=== PATIENT | male | born 1945 | race Hispanic/Latino ===

== ENCOUNTER 2019-02-22 14:29 | Outpatient (CLI) | payer OTHER, MEDICARE ==
--- NOTE | 2019-02-22 15:23 | RAD ---
LEFT HIP 2 VIEWS: HISTORY: Chronic left hip pain. FINDINGS: There are arthritic changes of the hip seen. There is some early spur formation along the femoral he ad and neck junction. Osteophytic change of the acetabulum without significant joint space narrowing . No fractures. Vascular calcifications are noted. IMPRESSION: Mild arthritic change of the hip. POS: [facility]
== END 2019-02-22 14:30 | disposition home or self-care (01) ==
LOC: SCSRAD 14:29
PROVIDERS: ATTEND Family Medicine
DX: M16.12 Unilateral primary osteoarthritis, left hip (principal)

== ENCOUNTER 2020-09-19 08:45 | Inpatient (IN) | payer MEDICARE ==
[2020-09-19 09:33] LABS: #Basophils 0.1 thou/uL (0.0-0.2); #Monocytes 0.5 thou/uL (0.11-0.59); %Basophils 0.7 % (0.0-1.0); %Lymphocytes 13.2 % (21.0-51.0); %Monocytes 6.7 % (0.0-10.0); %Neutrophils 79.4 % (42.0-75.0); Hemoglobin 17.5 g/dL (14.0-18.0); Mean Corpuscular HGB CONC 31.2 g/dL (32.0-36.0); Mean Corpuscular Hemoglobin 29.4 pg (27.0-31.0); Mean Platelet Volume 9.9 fL (7.4-10.4); Platelet Count 222 thou/uL (130-400); RBC Distribution Width 11.8 % (11.5-14.5); Red Blood Cell (RBC) Count 5.95 mill/uL (4.70-6.10); White Blood Cell (WBC) Count 7.5 thou/uL (4.8-10.8)
[2020-09-19 09:39] LABS: PTT 25.7 sec (22.9-36.1); Prothrombin Time 13.7 sec (12.0-14.7)
[2020-09-19] MEDS ORDERED: Cefepime 2 GM VIAL ONE (09:41)
[2020-09-19] MEDS ORDERED: Dexamethasone 10 MG/ML VIAL ONE (09:43)
[2020-09-19 09:56] LABS: ALT (SGPT) 80 U/L (8-55); AST (SGOT) 91 U/L (5-34); Albumin 3.9 g/dL (3.4-4.8); Alkaline Phosphatase 107 U/L (40-110); Anion Gap 34 mmol/L (10-20); BUN (Urea Nitrogen) 74 mg/dL (8.4-25.7); Calc. Creatinine Clearance 0 mL/min (70-130); Carbon Dioxide 14 mmol/L (23-31); Chloride 98 mmol/L (98-107); Globulin 4.1 g/dL (2.4-3.5); Potassium 5.3 mmol/L (3.5-5.1); Sodium 141 mmol/L (136-145)
[2020-09-19] MEDS ORDERED: Vancomycin 1.5 GRAM/300 ML BAG 1.5 GM in Premix Bag 1 BAG IVPB SCH (10:00)
[2020-09-19 10:10] LABS: Glucose 806 mg/dL (83-110)
--- NOTE | 2020-09-19 10:37 | RAD ---
EXAM: Chest one view: HISTORY: Dyspnea, altered mental status COMPARISON: 01/26/2014 FINDINGS: Minimal increased linear parenchymal changes in the perihilar regions and lower lung zones with mild right hemidiaphragm elevation. Heart size: Minimally enlarged. No confluent pneumonia. Lungs: Clear of acute process. No significant pleural effusion or pneumothorax. IMPRESSION: Minimal increased linear and interstitial markings in the mid and lower lung zones slightly more prom inent than prior study although this may just be related to less inspiration. Consider short-term follow-up.
[2020-09-19 10:46] LABS: Bilirubin Negative (Negative); Blood, Urine Small (Negative); Glucose, Urine (Dipstick) >=1000 mg/dL (Negative); Ketone, Urine 40 mg/dL (Negative); Leukocyte Negative (Negative); Nitrite Negative (Negative); Protein, Urine (Dipstick) Negative (Neg-Trace); Specific Gravity, Urine 1.015 (1.005-1.030); Urobilinogen 0.2 mg/dL (Less than 2)
[2020-09-19 10:48] LABS: CKMB 1.8 ng/mL (0-6.6)
[2020-09-19 10:57] LABS: Clarity Clear (Clear)
[2020-09-19 10:58] LABS: RBC/HPF 0-3 HPF (0-3); WBC/HPF None Seen HPF (0-3)
[2020-09-19 10:59] LABS: Bacteria/HPF 1+ HPF (None Seen); Squamous Epithelial 0-3 HPF (0-3); Yeast-Budding 1+ HPF (None Seen)
[2020-09-19 11:38] LABS: SARS-CoV-2 NAA Rapid Test DETECTED (NotDetected)
[2020-09-19] MEDS ORDERED: Diltiazem 125 MG/25 ML ONE ×2 (12:39→21:45)
[2020-09-19] MEDS ORDERED: INSULIN REGULAR IN 0.9 % NACL 100 UNIT/100 ML BAG ONE (12:39)
[2020-09-19 13:52] LABS: Lactic Acid 2.3 mmol/L (0.5-2.2)
[2020-09-19 14:01] LABS: Troponin I 0.039 ng/mL (< 0.028)
[2020-09-19] MEDS ORDERED: Diltiazem 125 MG in Sodium Chloride 0.9% 100 ML IVPB SCH (15:31)
[2020-09-19] MEDS ORDERED: HUMULIN R 100 UNITS in Sodium Chloride 0.9% 100 ML IVPB SCH (15:31)
[2020-09-19] MEDS ORDERED: NS 0.9% w/ 20 MEQ KCL 1,000 ML IV PRN ×2 (15:31)
[2020-09-19] MEDS ORDERED: Dextrose 5 %-0.45 % NaCl 1,000 ML IV PRN (15:31)
[2020-09-19] MEDS ORDERED: D5 1/2 NS w/20 mEq KCL 1,000 ML IV PRN (15:31)
[2020-09-19] MEDS ORDERED: Sodium Chloride 0.9% 1,000 ML IV PRN ×4 (15:31)
[2020-09-19] MEDS ORDERED: Electrolyte Replacement Protocol 1 EACH IVPB ONE (15:31)
[2020-09-19] MEDS ORDERED: hydrALAZINE 20 MG/ML VIAL SLOW IVP PRN (15:31)
[2020-09-19] MEDS ORDERED: Electrolyte Replacement Protocol FS PRN (15:45)
[2020-09-19 15:46] LABS: Troponin I 0.038 ng/mL (< 0.028)
[2020-09-19] MEDS ORDERED: Heparin 5,000 UNITS/ML VIAL SC SCH (16:00)
[2020-09-19 16:50] LABS: Anion Gap 27 mmol/L (10-20); BUN (Urea Nitrogen) 69 mg/dL (8.4-25.7); Calc. Creatinine Clearance 0 mL/min (70-130); Calcium 8.7 mg/dL (7.8-10.44); Carbon Dioxide 13 mmol/L (23-31); Chloride 111 mmol/L (98-107); Glucose 521 mg/dL (83-110); Potassium 4.3 mmol/L (3.5-5.1); Sodium 147 mmol/L (136-145)
[2020-09-19] MEDS ORDERED: Albuterol 200 PUFF (6.7GM INHALER) ONE (17:16)
--- NOTE | 2020-09-19 19:39 | HP ---
PRIMARY CARE PHYSICIAN: Dr. Malagon. CHIEF COMPLAINT: Altered mental status and shortness of breath. HISTORY OF PRESENT ILLNESS: Mr. Cohen is a 75-year-old gentleman, who has a history of diabetes mellitus, who was brought in by family due to altered mental status, decrease in his sensorium. His had also recently tested positive for COVID-19. When he was evaluated in the ER, he was found to be confused and hypoxic. He initially was placed on nasal cannula up to 6 L but was still saturating in the mid 80s and then was placed on high-flow. He was also found to be in atrial fibrillation with rapid ventricular response. He was given 20 of diltiazem. His heart rate improved but has since gone back up into the 120s, and he was also found to be in DKA. He also has an elevated lactic acid and neutrophilia and has met criteria for sepsis syndrome with the elevated heart rate and respiratory rate as well. Otherwise, no other history is obtainable. He is a bit obtunded. He is arousable and will try to answer questions but is confused. REVIEW OF SYSTEMS: This is unobtainable due to the patient's mental status. PAST MEDICAL HISTORY: Significant for ureteral stone, BPH, hypertension, osteoarthritis, and diabetes mellitus type 2. PAST SURGICAL HISTORY: He had laser lithotripsy, meatal dilatation, cystoscopy, and retrograde pyelogram. ALLERGIES: NO KNOWN DRUG ALLERGIES. SOCIAL HISTORY: He lives at home with family. It is reported to me that he wants to be a full code. There is no alcohol or drug use. In his records, it says he formerly worked at [employer]. FAMILY HISTORY: Significant for mother had coronary artery disease and in her 80s, hypertension in a daughter. CURRENT MEDICATIONS: Taken from the ER records and include, 1. Amlodipine 10 mg daily. 2. 200 mg every 8 hours. 3. [place] 5/325 one to two tablets q.4 hours as needed. 4. Flomax 0.4 mg daily. 5. Ketoralac 10 mg daily as needed. PHYSICAL EXAMINATION: GENERAL: He is a bit obtunded. He is well developed and well nourished. VITAL SIGNS: Initially blood pressure was 127/85, heart rate 130, respiratory rate of 47, temperature was 97.6, and O2 saturation was 84 on room air. HEENT: His pupils are equal, round, and reactive. Extraocular muscles are intact. His sclerae anicteric. NECK: There is no jugular venous distention. LUNGS: He has bilateral rales, very fine, an occasional wheeze. CARDIOVASCULAR: Heart rate is irregular, it is rapid, unable to appreciate any murmurs, clicks, or rubs. ABDOMEN: Soft, it is nontender, nondistended. Positive for bowel sounds. No rebound. No guarding. EXTREMITIES: There is no calf tenderness. No edema. He has palpable dorsalis pedis pulses bilaterally. No lesions on the feet. NEUROLOGIC: He is moving all extremities. SKIN AND INTEGUMENT: No skin changes. No rash. LAB RESULTS: White blood cell count is 7.5, hemoglobin 17.5, hematocrit is 55.9, and platelet count is 222. INR is 1.0. Sodium 141, potassium 5.3, chloride is 98, CO2 is 14, BUN of 74, creatinine 2.21, glucose was 806. Urinalysis was negative. Toxicology, the beta hydroxybutyrate was elevated at 7.93. On his chest x-ray, he had some elevation of the right hemidiaphragm and increased pulmonary vascular markings. This is by my reading. ASSESSMENT: This is a 75-year-old gentleman, who was brought in from home with acute respiratory distress. His has tested positive for COVID-19, and it is suspected that Mr. Cohen is COVID positive as well. He will be admitted to the [facility], started on IV Decadron. At this time, I am unable to assess when his symptoms began, and he also has an acute kidney injury with GFR less than 30, so at this time, he is not a candidate for remdesivir. If his renal function improves and we can identify the time when his symptoms started, this could be readdressed. 1. Diabetic ketoacidosis, likely due to the COVID pneumonia. He will be placed on the insulin drip protocol. 2. Sepsis. I suspect this is likely due to the DKA, and we will follow up on blood and urine cultures. 3. Atrial fibrillation with rapid ventricular response. He has been placed on a Cardizem drip, and we will go ahead and continue this and also consider full-dose anticoagulation should this persist. 4. Acute kidney injury, likely as a result of sepsis. We will trend his creatinine and consider renal ultrasound if his numbers do not improve as well as a nephrology consult. Job ID: [id number]
[2020-09-19 19:44] LABS: Anion Gap 18 mmol/L (10-20); BUN (Urea Nitrogen) 55 mg/dL (8.4-25.7); Calc. Creatinine Clearance 0 mL/min (70-130); Calcium 8.9 mg/dL (7.8-10.44); Carbon Dioxide 20 mmol/L (23-31); Chloride 115 mmol/L (98-107); Glucose 383 mg/dL (83-110); Potassium 4.1 mmol/L (3.5-5.1); Sodium 149 mmol/L (136-145)
[2020-09-19] MEDS ORDERED: Cefepime 1 GM VIAL ONE (21:20)
[2020-09-19] MEDS ORDERED: Famotidine/PF 20 mg/2ml Vial ONE (21:20)
[2020-09-19] MEDS: Famotidine/PF 20 mg/2ml Vial SLOW IVP SCH (21:57)
[2020-09-19] MEDS: Cefepime 1 GM in Sodium Chloride 0.9% 100 ML IVPB SCH (22:04)
[2020-09-19] MEDS ORDERED: Acetaminophen 650 MG Suppository ONE (23:30)
[2020-09-19] MEDS: Acetaminophen 325 MG TAB PO PRN (23:38)
[2020-09-19] MEDS: Heparin 5,000 UNITS/ML VIAL SC SCH (23:46)
[2020-09-20 00:23] LABS: Anion Gap 17 mmol/L (10-20); BUN (Urea Nitrogen) 45 mg/dL (8.4-25.7); Calc. Creatinine Clearance 60 mL/min (70-130); Calcium 8.5 mg/dL (7.8-10.44); Carbon Dioxide 20 mmol/L (23-31); Chloride 118 mmol/L (98-107); Glucose 319 mg/dL (83-110); Potassium 4.3 mmol/L (3.5-5.1); Sodium 151 mmol/L (136-145)
[2020-09-20 02:34] LABS: Magnesium 2.2 mg/dL (1.6-2.6); Phosphorus 2.2 mg/dL (2.3-4.7)
[2020-09-20 02:44] LABS: Anion Gap 19 mmol/L (10-20); BUN (Urea Nitrogen) 40 mg/dL (8.4-25.7); CRP (Inflammatory) 22.75 mg/dL (= or < 0.5); Calc. Creatinine Clearance 68 mL/min (70-130); Calcium 8.4 mg/dL (7.8-10.44); Carbon Dioxide 17 mmol/L (23-31); Chloride 121 mmol/L (98-107); Glucose 265 mg/dL (83-110); Potassium 4.7 mmol/L (3.5-5.1); Sodium 152 mmol/L (136-145)
--- NOTE | 2020-09-20 03:22 | PDOC.BPN ---
- Brief Progress Note Encounter Date: 09/20/20 I was informed about the critical value of serum osmolality at 339. Review of his chart his sodium increasing from 1 52-153 on the serial BMPs We will change solution to half-normal saline continue BMP monitoring
[2020-09-20] MEDS ORDERED: INSULIN REGULAR IN 0.9 % NACL 100 UNIT/100 ML BAG ONE (07:23)
[2020-09-20] MEDS ORDERED: Insulin Glargine 15 UNITS in Pre-Filled Syringe 1 EACH SC SCH ×2 (09:00→21:00)
--- NOTE | 2020-09-20 09:15 | PDOC.HOSPP ---
- Subjective Encounter Date: 09/20/20 Encounter Time: 09:13 Subjective: Mr. Salamanca was seen today in follow-up of DKA and COVID pneumonia. He is still confused, and pulling at his IV's. He says he is not in pain, nor having trouble breathing. - Objective Vital Signs & Weight: Weight Weight 186 lb 4.65 oz Result Diagrams: 09/19/20 09:13 09/20/20 01:50 Additional Labs: Accuchecks 09/20/20 09/20/20 09/20/20 08:27 06:39 05:26 POC Glucose 199 H 163 H 211 H 09/20/20 09/20/20 09/19/20 01:17 00:17 20:08 POC Glucose 221 H 292 H 345 H 09/19/20 09/19/20 09/19/20 18:49 16:56 15:36 POC Glucose 369 H 402 H 431 H Hospitalist ROS - Medication Medications: Active Medications Generic Name Dose Route Start Last Admin Trade Name Freq PRN Reason Stop Dose Admin Acetaminophen 650 mg 09/19/20 15:31 09/19/20 23:38 Acetaminophen 325 Mg Tab PO 650 mg Q4H PRN Administration Headache/Fever/Mild Pain (1-3) Famotidine 20 mg 09/19/20 21:00 09/19/20 21:57 Famotidine/Pf 20 Mg/2ml Vial SLOW IVP 20 mg HS STEPHENIE Administration Heparin Sodium (Porcine) 5,000 units 09/19/20 21:00 09/19/20 23:46 Heparin 5,000 Units/Ml Vial SC 5,000 units TID STEPHENIE Administration Potassium Chloride/Dextrose/Sod Cl 1,000 mls @ 250 mls/hr 09/19/20 15:31 09/20/20 07:50 D5 1/2 Ns W/20 Meq Kcl IV 1,000 mls .Q4H PRN Administration Step 4 of DKA Protocol Protocol Cefepime HCl 1 gm/ Sodium 100 mls @ 200 mls/hr 09/19/20 21:00 09/19/20 22:04 Chloride IVPB 100 mls Q12HR STEPHENIE Administration Potassium Chloride/Sodium Chloride 1,000 mls @ 250 mls/hr 09/19/20 15:31 21:57 Ns 0.9% W/ 20 Meq Kcl IV 1,000 mls .Q4H PRN Administration SEE STEP 3 OF DKA PROTOCOL Protocol - Exam Eye: PERRL, anicteric sclera ENT: dry oral mucosa Heart: irregular Respiratory: no ronchi, normal chest expansion, rales, wheezes Gastrointestinal: soft, non-tender, non-distended, normal bowel sounds, no palpable masses, no hepatomegaly Extremities: no cyanosis, no edema Hosp A/P (1) DKA, type 2 Code(s): E11.10 - TYPE 2 DIABETES MELLITUS WITH KETOACIDOSIS WITHOUT COMA Status: Acute (2) Pneumonia due to COVID-19 virus Code(s): U07.1 - COVID-19; J12.82 - Status: Acute (3) Metabolic encephalopathy Code(s): G93.41 - METABOLIC ENCEPHALOPATHY Status: Acute (4) Atrial fibrillation Code(s): I48.91 - UNSPECIFIED ATRIAL FIBRILLATION Status: Acute (5) Sepsis Code(s): A41.9 - SEPSIS, UNSPECIFIED ORGANISM Status: Acute - Plan * DKA- his anion gap is now closed. blood glucose levels have improved. I am not sure what his out patient regimen is regarding diabetes control. Will therefore place him on a low dose Lantus, and SSI * Advance his diet * AFIB with RVR- will place him on Cardizem or a a beta-alex p.o. and hopefully can wean the cardizem drip * Sepsis- I suspect due to COVID, but will continue empiric antibiotics until final culture results are available * COVID pneumonia- continue supplemental oxygen and Decadron * SUZANNE- improved * Hypernatremia- agree with hypotonic fluids, and will re-check this afternoon, may need to change his fluids to D5W *
[2020-09-20] MEDS ORDERED: Dextrose 5% in Water 1,000 ML IV PRN (09:17)
[2020-09-20] MEDS ORDERED: Dextrose 50% Abboject 50 ML SYRINGE SLOW IVP PRN (09:17)
[2020-09-20] MEDS ORDERED: Cefepime 1 GM VIAL ONE (09:32)
[2020-09-20] MEDS ORDERED: Heparin 10,000 UNITS/ 10 ML VIAL ONE (09:32)
[2020-09-20] MEDS ORDERED: Vancomycin 1 GM in Premix Bag 1 BAG IVPB SCH (10:00)
[2020-09-20] MEDS: Dexamethasone 6 MG in Sodium Chloride 0.9% 50 ML IVPB SCH (10:09)
[2020-09-20] MEDS: Cefepime 1 GM in Sodium Chloride 0.9% 100 ML IVPB SCH ×2 (10:10→21:37)
[2020-09-20] MEDS: Sodium Chloride 0.45% 1,000 ML IV SCH ×2 (10:11→17:26)
[2020-09-20] MEDS ORDERED: Vancomycin 1 GM/200 ML BAG ONE (10:43)
[2020-09-20] MEDS: Saccharomyces boulardii 250 MG CAP PO SCH (12:05)
[2020-09-20 13:17] LABS: Anion Gap 21 mmol/L (10-20); BUN (Urea Nitrogen) 33 mg/dL (8.4-25.7); Calc. Creatinine Clearance 59 mL/min (70-130); Calcium 8.1 mg/dL (7.8-10.44); Carbon Dioxide 14 mmol/L (23-31); Chloride 115 mmol/L (98-107); Glucose 272 mg/dL (83-110); Potassium 5.3 mmol/L (3.5-5.1); Sodium 145 mmol/L (136-145)
[2020-09-20] MEDS ORDERED: HumaLOG 300 UNITS/3 ML VIAL ONE (13:39)
[2020-09-20] MEDS: HumaLOG 300 UNITS/3 ML VIAL SC PRN ×2 (13:43→18:06)
[2020-09-20] MEDS: Heparin 5,000 UNITS/ML VIAL SC SCH (20:31)
[2020-09-20] MEDS ORDERED: Enoxaparin Sodium 40 MG/0.4 ML SYRINGE SC SCH (21:00)
[2020-09-20] MEDS: Diabetic Tussin 200 MG/10 ML UDCUP PO PRN (21:35)
[2020-09-20] MEDS: Tamsulosin HCl 0.4 MG CAP PO SCH (21:36)
[2020-09-20] MEDS: Famotidine/PF 20 mg/2ml Vial SLOW IVP SCH (21:36)
[2020-09-20] MEDS: Metoprolol Tartrate 25 MG TAB PO SCH (21:36)
[2020-09-20] MEDS: Lactated Ringer's 1,000 ML IV SCH (21:38)
[2020-09-21] MEDS: Diabetic Tussin 200 MG/10 ML UDCUP PO PRN ×4 (01:02→21:06)
[2020-09-21 05:45] LABS: Anion Gap 20 mmol/L (10-20); BUN (Urea Nitrogen) 28 mg/dL (8.4-25.7); Calc. Creatinine Clearance 84 mL/min (70-130); Calcium 8.2 mg/dL (7.8-10.44); Carbon Dioxide 18 mmol/L (23-31); Chloride 109 mmol/L (98-107); Glucose 289 mg/dL (83-110); Potassium 4.3 mmol/L (3.5-5.1); Sodium 143 mmol/L (136-145)
[2020-09-21] MEDS: HumaLOG 300 UNITS/3 ML VIAL SC PRN ×4 (05:50→20:55)
[2020-09-21] MEDS: Lactated Ringer's 1,000 ML IV SCH (08:48)
[2020-09-21] MEDS: Metoprolol Tartrate 25 MG TAB PO SCH ×2 (08:49→20:52)
[2020-09-21] MEDS: Tamsulosin HCl 0.4 MG CAP PO SCH ×2 (08:49→20:52)
[2020-09-21] MEDS ORDERED: Amlodipine 10 MG TAB PO SCH (09:00)
[2020-09-21] MEDS: Dexamethasone 6 MG in Sodium Chloride 0.9% 50 ML IVPB SCH (09:17)
--- NOTE | 2020-09-21 09:59 | PDOC.HOSPP ---
- Subjective Encounter Date: 09/21/20 Encounter Time: 09:58 Subjective: Mr. Cohen was seen today in follow-up of COVID pneumonia, and encephalopathy. He is much better with regards to his mental status. He knows he is in the hospital, he knows the year, and that he is in the hospital " because of COVID". - Objective Vital Signs & Weight: Vital Signs (12 hours) Temp Pulse Resp BP Pulse Ox 09/21/20 08:20 99.4 F 130 H 36 H 166/97 H 94 L 09/21/20 03:45 98.8 F 111 H 22 H 142/88 H 94 L 09/20/20 23:39 98.3 F 86 22 H 140/78 94 L Weight Weight 190 lb I&O: 09/20/20 09/21/20 09/22/20 06:59 06:59 06:59 Intake Total 2209 Output Total 1225 Balance 984 Result Diagrams: 09/19/20 09:13 09/21/20 05:08 Additional Labs: Accuchecks 09/20/20 09/20/20 21:46 17:54 POC Glucose 256 H 294 H Hospitalist ROS - Medication Medications: Active Medications Generic Name Dose Route Start Last Admin Trade Name Freq PRN Reason Stop Dose Admin Acetaminophen 650 mg 09/19/20 15:31 09/19/20 23:38 Acetaminophen 325 Mg Tab PO 650 mg Q4H PRN Administration Headache/Fever/Mild Pain (1-3) Diltiazem HCl 30 mg 09/20/20 11:30 09/21/20 08:49 Diltiazem Hcl 30 Mg Tablet PO 30 mg ACHS STEPHENIE Administration Enoxaparin Sodium 40 mg 09/20/20 21:00 09/20/20 21:36 Enoxaparin Sodium 40 Mg/0.4 Ml Syringe SC 40 mg 2100 STEPHENIE Administration Famotidine 20 mg 09/19/20 21:00 09/20/20 21:36 Famotidine/Pf 20 Mg/2ml Vial SLOW IVP 20 mg HS STEPHENIE Administration Guaifenesin 200 mg 09/20/20 20:30 09/21/20 05:52 Diabetic Tussin 200 Mg/10 Ml Udcup PO 200 mg Q4H PRN Administration Cough Dexamethasone 6 mg/ Sodium 51.5 mls @ 100 mls/hr 09/20/20 09:00 09/21/20 09:17 Chloride IVPB 51.5 mls DAILY STEPHENIE Administration Lactated Ringer's 1,000 mls @ 100 mls/hr 09/20/20 20:30 09/21/20 08:48 Lactated Ringer's IV 1,000 mls .Q10H STEPHENIE Administration Insulin Human Lispro 0 units 09/20/20 09:17 09/21/20 05:50 Humalog 300 Units/3 Ml Vial SC 6 unit .MODERATE SLIDING SC PRN Administration Moderate Correctional Scale Metoprolol Tartrate 25 mg 09/20/20 21:00 09/21/20 08:49 Metoprolol Tartrate 25 Mg Tab PO 25 mg BID STEPHENIE Administration Saccharomyces Boulardii 250 mg 09/20/20 12:00 09/20/20 12:05 Saccharomyces Boulardii 250 Mg Cap PO 250 mg 1200 STEPHENIE Administration Tamsulosin HCl 0.4 mg 09/20/20 21:00 09/21/20 08:49 Tamsulosin Hcl 0.4 Mg Cap PO 0.4 mg BID STEPHENIE Administration - Exam General Appearance: NAD, awake alert Eye: PERRL, anicteric sclera Heart: RRR, no murmur, no gallops, no rubs Respiratory: rales (rales and rhonchi at both bases), rhonchi Gastrointestinal: soft, non-tender, non-distended, normal bowel sounds, no palpable masses Extremities: 1+ LE edema (palpable d.p. pulses bilaterally no lesions) Hosp A/P (1) Pneumonia due to COVID-19 virus Code(s): U07.1 - COVID-19; J12.82 - Status: Acute (2) Diabetes mellitus type 2 in obese Code(s): E11.69 - TYPE 2 DIABETES MELLITUS WITH OTHER SPECIFIED COMPLICATION; E66.9 - OBESITY, UNSPECIFIED Status: Chronic (3) Metabolic encephalopathy Code(s): G93.41 - METABOLIC ENCEPHALOPATHY Status: Resolved (4) Atrial fibrillation Code(s): I48.91 - UNSPECIFIED ATRIAL FIBRILLATION Status: Acute (5) Sepsis Code(s): A41.9 - SEPSIS, UNSPECIFIED ORGANISM Status: Acute (6) DKA, type 2 Code(s): E11.10 - TYPE 2 DIABETES MELLITUS WITH KETOACIDOSIS WITHOUT COMA Status: Acute - Plan * COVID pneumonia with metabolic encephalopathy- improved He is much more oriented, * Continue Decadron IV * AFIB with RVR- heart rate is better, off Cardizem drip. Will continue oral Ca rdizem and Metoprolol * Sepsis- suspected due to COVID, cultures are negative so far, so will discon tinue antibiotics * COVID pneumonia- continue supplemental oxygen and Decadron * SUZANNE- resolved * Hypernatremia- resolved *
--- NOTE | 2020-09-21 10:27 | PDOC.HOSPP ---
- Subjective Encounter Date: 09/21/20 Encounter Time: 10:25 Subjective: Mr. James was seen today in follow-up of COVID pneumonia. He does not have any complaints. He is a buit more confused today as compared to yesterday. - Objective Vital Signs & Weight: Vital Signs (12 hours) Temp Pulse Resp BP Pulse Ox 09/21/20 08:20 99.4 F 130 H 36 H 166/97 H 94 L 09/21/20 03:45 98.8 F 111 H 22 H 142/88 H 94 L 09/20/20 23:39 98.3 F 86 22 H 140/78 94 L Weight Weight 190 lb I&O: 09/20/20 09/21/20 09/22/20 06:59 06:59 06:59 Intake Total 2209 Output Total 1225 Balance 984 Result Diagrams: 09/19/20 09:13 09/21/20 05:08 Additional Labs: Accuchecks 09/20/20 09/20/20 21:46 17:54 POC Glucose 256 H 294 H Hospitalist ROS - Medication Medications: Active Medications Generic Name Dose Route Start Last Admin Trade Name Freq PRN Reason Stop Dose Admin Acetaminophen 650 mg 09/19/20 15:31 09/19/20 23:38 Acetaminophen 325 Mg Tab PO 650 mg Q4H PRN Administration Headache/Fever/Mild Pain (1-3) Diltiazem HCl 30 mg 09/20/20 11:30 09/21/20 08:49 Diltiazem Hcl 30 Mg Tablet PO 30 mg ACHS STEPHENIE Administration Famotidine 20 mg 09/19/20 21:00 09/20/20 21:36 Famotidine/Pf 20 Mg/2ml Vial SLOW IVP 20 mg HS STEPHENIE Administration Guaifenesin 200 mg 09/20/20 20:30 09/21/20 05:52 Diabetic Tussin 200 Mg/10 Ml Udcup PO 200 mg Q4H PRN Administration Cough Dexamethasone 6 mg/ Sodium 51.5 mls @ 100 mls/hr 09/20/20 09:00 09/21/20 09:17 Chloride IVPB 51.5 mls DAILY STEPHENIE Administration Insulin Human Lispro 0 units 09/20/20 09:17 09/21/20 05:50 Humalog 300 Units/3 Ml Vial SC 6 unit .MODERATE SLIDING SC PRN Administration Moderate Correctional Scale Metoprolol Tartrate 25 mg 09/20/20 21:00 09/21/20 08:49 Metoprolol Tartrate 25 Mg Tab PO 25 mg BID STEPHENIE Administration Saccharomyces Boulardii 250 mg 09/20/20 12:00 09/20/20 12:05 Saccharomyces Boulardii 250 Mg Cap PO 250 mg 1200 STEPHENIE Administration Tamsulosin HCl 0.4 mg 09/20/20 21:00 09/21/20 08:49 Tamsulosin Hcl 0.4 Mg Cap PO 0.4 mg BID STEPHENIE Administration - Exam Eye: PERRL, anicteric sclera Heart: RRR, no murmur, no gallops, no rubs, normal peripheral pulses Respiratory: rales (rales and rhonchi at both bases) Gastrointestinal: soft, non-tender, non-distended, normal bowel sounds, no palpable masses Extremities: no cyanosis, no edema (good distal pulses bilaterally) Hosp A/P (1) Pneumonia due to COVID-19 virus Code(s): U07.1 - COVID-19; J12.82 - Status: Acute (2) Diabetes mellitus type 2 in obese Code(s): E11.69 - TYPE 2 DIABETES MELLITUS WITH OTHER SPECIFIED COMPLICATION; E66.9 - OBESITY, UNSPECIFIED Status: Chronic (3) Metabolic encephalopathy Code(s): G93.41 - METABOLIC ENCEPHALOPATHY Status: Resolved (4) Atrial fibrillation Code(s): I48.91 - UNSPECIFIED ATRIAL FIBRILLATION Status: Acute (5) Sepsis Code(s): A41.9 - SEPSIS, UNSPECIFIED ORGANISM Status: Acute (6) DKA, type 2 Code(s): E11.10 - TYPE 2 DIABETES MELLITUS WITH KETOACIDOSIS WITHOUT COMA Status: Acute - Plan * COVID pneumonia with metabolic encephalopathy- improved He is much more oriented, * Continue Decadron IV * AFIB with RVR- heart rate is better, off Cardizem drip. Will continue oral Cardizem and Metoprolol * Sepsis- suspected due to COVID, cultures are negative so far, so will discontinue antibiotics * COVID pneumonia- continue supplemental oxygen and Decadron * SUZANNE- resolved * Hypernatremia- resolved *
[2020-09-21 10:30] LABS: Vancomycin, Trough 2.8 ug/mL
[2020-09-21] MEDS: Saccharomyces boulardii 250 MG CAP PO SCH (12:06)
[2020-09-21] MEDS: Insulin Glargine 20 UNITS in Pre-Filled Syringe 1 EACH SC SCH (12:06)
--- NOTE | 2020-09-21 17:14 | PQF ---
CLINICAL DOCUMENTATION CLARIFICATION FORM: Dear Dr. Case Pickens, Dr. Gina Galvan Date: 09/21/20, , 09/23/2020, 09/24/2020 Please exercise your independent, professional judgment in responding to the clarification form. Clinical indicators are provided on the bottom of this form for your review. Please check appropriate box(es): [X ] Acute Respiratory Failure: [ X ] with Hypoxia [ ] with Hypercapnia [ ] Acute On Chronic Respiratory Failure: [ ] with Hypoxia [ ] with Hypercapnia [ ] Acute Respiratory Failure due to: (etiology) [ ] Hypoxia [ ] Other diagnosis [ ] Unable to determine In addition, please specify: Present on Admission (POA): [ ] Yes [ ] No [ ] Unable to determine For continuity of documentation, please document condition throughout progress notes and discharge summary. Thank You. To be completed by CDI/Coding staff for physician review: CLINICAL INDICATORS - SIGNS / SYMPTOMS / LABS / RESULTS AND LOCATION IN Respirations 47, pulse 135, 84% RA > 95% high flow O2, patient presents for evaluation of changes in mental status and shortness of breath, evaluation for coronavirus exposure, hypoxia, increased work of breathing (ED Report) 1/2 RISK FACTORS / RESULTS AND LOCATION IN MR Sepsis, Covid Pneumonia ( PN/Celio) / TREATMENTS / RESULTS AND LOCATION IN MR Supplemental Oxygen ( 09/20 present) Acute Respiratory Failure: ABG pH < 7.35 or > 7.45; Decreased oxygen saturation (<90% room air or < 95% on oxygen); PCO2 > 50 mm Hg; PO2 < 60 mm Hg; Labored or rapid respirations ARDS: Dx Criteria [[place] ARDS]: Respiratory symptoms within one week of a known clinical insult (e.g. shock, infection, surgery, trauma) Bilateral opacities in CXR/Chest CT not due to CHF or fluid THANK YOU! CDS Signature: Magalys Olsen RN Phone #: [phone] Date:09/21/2020 This is a permanent part of the Medical Record [facility]
[2020-09-21] MEDS: Acetaminophen 325 MG TAB PO PRN ×2 (17:24→20:51)
[2020-09-21] MEDS: Enoxaparin Sodium 80 MG/0.8 ML SYRINGE SC SCH (20:51)
[2020-09-21] MEDS ORDERED: Insulin Glargine 20 UNITS in Pre-Filled Syringe 1 EACH SC SCH (21:00)
[2020-09-21] MEDS: Famotidine/PF 20 mg/2ml Vial SLOW IVP SCH ×2 (21:00→21:11)
[2020-09-22 05:39] LABS: Anion Gap 18 mmol/L (10-20); BUN (Urea Nitrogen) 28 mg/dL (8.4-25.7); CRP (Inflammatory) 12.89 mg/dL (= or < 0.5); Calc. Creatinine Clearance 85 mL/min (70-130); Calcium 8.4 mg/dL (7.8-10.44); Carbon Dioxide 20 mmol/L (23-31); Chloride 109 mmol/L (98-107); Glucose 258 mg/dL (83-110); Potassium 4.7 mmol/L (3.5-5.1); Sodium 142 mmol/L (136-145)
[2020-09-22] MEDS: HumaLOG 300 UNITS/3 ML VIAL SC PRN ×5 (06:08→21:16)
[2020-09-22] MEDS: Diabetic Tussin 200 MG/10 ML UDCUP PO PRN ×4 (06:10→21:16)
[2020-09-22] MEDS: Insulin Glargine 20 UNITS in Pre-Filled Syringe 1 EACH SC SCH (07:46)
[2020-09-22] MEDS: Ascorbic Acid 500 mg Chewable Tablet PO SCH (07:47)
[2020-09-22] MEDS: Enoxaparin Sodium 80 MG/0.8 ML SYRINGE SC SCH ×2 (07:47→21:17)
[2020-09-22] MEDS: Cholecalciferol (Vitamin D3) 400 UNITS TAB PO SCH (07:48)
[2020-09-22] MEDS: Dexamethasone 6 MG in Sodium Chloride 0.9% 50 ML IVPB SCH (07:48)
[2020-09-22] MEDS: Tamsulosin HCl 0.4 MG CAP PO SCH ×2 (07:49→21:16)
--- NOTE | 2020-09-22 09:05 | PDOC.HOSPP ---
- Subjective Encounter Date: 09/22/20 Encounter Time: 09:02 Subjective: Mr. Cohen was seen today in follow-up of COVID pneumonia, and encephalopathy. He is much clearer today than yesterday. He was able to tell me that his symptoms started the before last. He says he tried to get in to see his Primary Care Provider but was not able to. He says in the few days before he was admitted he was was " out of it". He says he was not eating or drinking anything, and just laying around. - Objective Vital Signs & Weight: Vital Signs (12 hours) Temp Pulse Resp BP Pulse Ox 09/22/20 04:09 98.8 F 108 H 22 H 155/87 H 98 09/21/20 23:35 98.4 F 106 H 22 H 153/88 H 96 Weight Weight 190 lb I&O: 09/21/20 09/22/20 09/23/20 06:59 06:59 06:59 Intake Total 2209 1500 Output Total 1225 700 Balance 984 800 Result Diagrams: 09/19/20 09:13 09/22/20 04:48 Additional Labs: Accuchecks 09/22/20 09/21/20 09/21/20 05:31 19:59 16:54 POC Glucose 237 H 297 H 347 H 09/21/20 09/20/20 09/20/20 12:21 15:18 12:51 POC Glucose 325 H 254 H 252 H 09/20/20 09/20/20 09/20/20 10:57 09:58 04:29 POC Glucose 122 H 227 H 243 H 09/20/20 09/20/20 09/19/20 03:15 02:23 22:56 POC Glucose 275 H 266 H 307 H 09/19/20 09/19/20 13:57 12:59 POC Glucose Greater than 530 H* Greater than 530 H* Hospitalist ROS - Medication Medications: Active Medications Generic Name Dose Route Start Last Admin Trade Name Freq PRN Reason Stop Dose Admin Acetaminophen 650 mg 09/19/20 15:31 09/21/20 20:51 Acetaminophen 325 Mg Tab PO 650 mg Q4H PRN Administration Headache/Fever/Mild Pain (1-3) Ascorbic Acid 1,000 mg 09/22/20 09:00 09/22/20 07:47 Ascorbic Acid 500 Mg Chewable Tablet PO 1,000 mg DAILY STEPHENIE Administration Cholecalciferol 400 units 09/22/20 09:00 09/22/20 07:48 Cholecalciferol (Vitamin D3) 400 Units Tab PO 400 units DAILY STEPHENIE Administration Diltiazem HCl 30 mg 09/20/20 11:30 09/22/20 07:47 Diltiazem Hcl 30 Mg Tablet PO 30 mg ACHS STEPHENIE Administration Enoxaparin Sodium 80 mg 09/21/20 21:00 09/22/20 07:47 Enoxaparin Sodium 80 Mg/0.8 Ml Syringe SC 80 mg 0900,2099 STEPHENIE Administration Famotidine 20 mg 09/21/20 21:00 09/21/20 21:11 Famotidine/Pf 20 Mg/2ml Vial SLOW IVP 20 mg HS STEPHENIE Administration Guaifenesin 200 mg 09/20/20 20:30 09/22/20 06:10 Diabetic Tussin 200 Mg/10 Ml Udcup PO 200 mg Q4H PRN Administration Cough Dexamethasone 6 mg/ Sodium 51.5 mls @ 100 mls/hr 09/20/20 09:00 09/22/20 07:48 Chloride IVPB 51.5 mls DAILY STEPHENIE Administration Insulin Human Lispro 0 units 09/20/20 09:17 09/22/20 06:08 Humalog 300 Units/3 Ml Vial SC 4 unit .MODERATE SLIDING SC PRN Administration Moderate Correctional Scale Insulin Human Lispro 0 units 09/20/20 09:17 09/21/20 20:55 Humalog 300 Units/3 Ml Vial SC 3 unit .BEDTIME SLIDING SC PRN Administration Bedtime Correctional Scale Metoprolol Tartrate 25 mg 09/20/20 21:00 09/21/20 20:52 Metoprolol Tartrate 25 Mg Tab PO 25 mg BID STEPHENIE Administration Saccharomyces Boulardii 250 mg 09/20/20 12:00 09/21/20 12:06 Saccharomyces Boulardii 250 Mg Cap PO 250 mg 1200 STEPHENIE Administration Sodium Chloride 10 ml 09/21/20 21:00 09/22/20 07:48 Flush - Normal Saline 10 Ml Syringe IVF 10 ml Q12HR STEPHENIE Administration Tamsulosin HCl 0.4 mg 09/20/20 21:00 09/22/20 07:49 Tamsulosin Hcl 0.4 Mg Cap PO 0.4 mg BID STEPHENIE Administration - Exam Eye: PERRL, anicteric sclera Heart: RRR, no murmur, no gallops, no rubs, normal peripheral pulses Respiratory: no wheezes, no ronchi, rales (at both bases) Gastrointestinal: soft, non-tender, non-distended, normal bowel sounds, no palpable masses, no hepatomegaly Extremities: no cyanosis (+ palpable d.p. pulses, no lesions), 1+ LE edema Hosp A/P (1) Pneumonia due to COVID-19 virus Code(s): U07.1 - COVID-19; J12.82 - Status: Acute (2) Diabetes mellitus type 2 in obese Code(s): E11.69 - TYPE 2 DIABETES MELLITUS WITH OTHER SPECIFIED COMPLICATION; E66.9 - OBESITY, UNSPECIFIED Status: Chronic (3) Metabolic encephalopathy Code(s): G93.41 - METABOLIC ENCEPHALOPATHY Status: Resolved (4) Atrial fibrillation Code(s): I48.91 - UNSPECIFIED ATRIAL FIBRILLATION Status: Acute (5) Sepsis Code(s): A41.9 - SEPSIS, UNSPECIFIED ORGANISM Status: Acute (6) DKA, type 2 Code(s): E11.10 - TYPE 2 DIABETES MELLITUS WITH KETOACIDOSIS WITHOUT COMA Status: Acute - Plan * COVID pneumonia with metabolic encephalopathy- resolving * Continue Decadron IV * AFIB with RVR- heart rate is better- continue Lovenox * DM- He was able to tell me that he was taking Metformin at home at 500mg twice a day- will re-start this in addition to the Lantus * Sepsis- suspected due to COVID, cultures are negative so far, so will discontinue antibiotics * COVID pneumonia- continue supplemental oxygen and Decadron * SUZANNE- resolved * Hypernatremia- resolved * HTN- blood pressure is trending down
[2020-09-22] MEDS: Acetaminophen 325 MG TAB PO PRN ×2 (10:27→21:16)
[2020-09-22] MEDS: Metoprolol Tartrate 25 MG TAB PO SCH ×3 (10:27→21:16)
[2020-09-22] MEDS: Zinc Sulfate 220 MG CAP PO SCH ×2 (10:28→12:01)
[2020-09-22] MEDS: Insulin Glargine 25 UNITS in Pre-Filled Syringe 1 EACH SC SCH ×3 (10:29→21:18)
[2020-09-22] MEDS ORDERED: Insulin Glargine 5 UNITS in Pre-Filled Syringe 1 EACH SC SCH (10:45)
[2020-09-22] MEDS: Saccharomyces boulardii 250 MG CAP PO SCH (12:01)
[2020-09-22] MEDS: Albuterol 200 PUFF (6.7GM INHALER) INH PRN (15:16)
[2020-09-22] MEDS: metFORMIN 500 MG TAB PO SCH (17:39)
[2020-09-22] MEDS: Famotidine/PF 20 mg/2ml Vial SLOW IVP SCH (21:18)
[2020-09-23] MEDS: Diabetic Tussin 200 MG/10 ML UDCUP PO PRN ×3 (04:22→21:02)
[2020-09-23 05:16] LABS: Hemoglobin 14.9 g/dL (14.0-18.0); Platelet Count 231 thou/uL (130-400)
[2020-09-23 05:41] LABS: Anion Gap 18 mmol/L (10-20); BUN (Urea Nitrogen) 32 mg/dL (8.4-25.7); CRP (Inflammatory) 7.95 mg/dL (= or < 0.5); Calc. Creatinine Clearance 82 mL/min (70-130); Calcium 8.5 mg/dL (7.8-10.44); Carbon Dioxide 23 mmol/L (23-31); Chloride 109 mmol/L (98-107); Glucose 252 mg/dL (83-110); Potassium 3.7 mmol/L (3.5-5.1); Sodium 146 mmol/L (136-145)
[2020-09-23] MEDS: HumaLOG 300 UNITS/3 ML VIAL SC PRN ×4 (06:14→21:22)
[2020-09-23] MEDS: Ascorbic Acid 500 mg Chewable Tablet PO SCH (09:45)
[2020-09-23] MEDS: Tamsulosin HCl 0.4 MG CAP PO SCH ×2 (09:45→21:00)
[2020-09-23] MEDS: metFORMIN 500 MG TAB PO SCH ×2 (09:45→16:16)
[2020-09-23] MEDS: Cholecalciferol (Vitamin D3) 400 UNITS TAB PO SCH (09:45)
[2020-09-23] MEDS: Metoprolol Tartrate 25 MG TAB PO SCH ×2 (09:45→21:00)
[2020-09-23] MEDS: Dexamethasone 6 MG in Sodium Chloride 0.9% 50 ML IVPB SCH (09:46)
[2020-09-23] MEDS: Enoxaparin Sodium 80 MG/0.8 ML SYRINGE SC SCH ×2 (09:46→21:00)
[2020-09-23] MEDS: Albuterol 200 PUFF (6.7GM INHALER) INH PRN ×2 (09:48→17:14)
[2020-09-23] MEDS: Insulin Glargine 25 UNITS in Pre-Filled Syringe 1 EACH SC SCH ×2 (09:48→21:00)
[2020-09-23] MEDS: Zinc Sulfate 220 MG CAP PO SCH (11:27)
[2020-09-23] MEDS: Saccharomyces boulardii 250 MG CAP PO SCH (11:30)
--- NOTE | 2020-09-23 11:35 | PDOC.HOSPP ---
- Subjective Encounter Date: 09/23/20 Subjective: The patient does not appear to be in any respiratory distress today. - Objective Vital Signs & Weight: Vital Signs (12 hours) Temp Pulse Resp BP Pulse Ox 09/23/20 10:00 98.6 F 118 H 32 H 144/80 H 90 L 09/23/20 04:00 98.0 F 110 H 20 142/92 H 98 09/23/20 00:00 97.9 F 85 21 H 146/79 H 97 Weight Weight 190 lb I&O: 09/22/20 09/23/20 09/24/20 06:59 06:59 06:59 Intake Total 1500 1200 Output Total 700 1300 Balance 800 -100 Result Diagrams: 09/23/20 05:08 09/23/20 05:08 Additional Labs: Accuchecks 09/23/20 09/22/20 09/22/20 10:48 20:42 17:07 POC Glucose 240 H 347 H 323 H Hospitalist ROS - Medication Medications: Active Medications Generic Name Dose Route Start Last Admin Trade Name Freq PRN Reason Stop Dose Admin Acetaminophen 650 mg 09/19/20 15:31 09/22/20 21:16 Acetaminophen 325 Mg Tab PO 650 mg Q4H PRN Administration Headache/Fever/Mild Pain (1-3) Albuterol Sulfate 2 puff 09/21/20 00:35 09/22/20 15:16 Albuterol 200 Puff (6.7gm Inhaler) INH 2 puff Q6H PRN Administration SOB &/or Wheezing Ascorbic Acid 1,000 mg 09/22/20 09:00 09/23/20 09:45 Ascorbic Acid 500 Mg Chewable Tablet PO 1,000 mg DAILY STEPHENIE Administration Cholecalciferol 400 units 09/22/20 09:00 09/23/20 09:45 Cholecalciferol (Vitamin D3) 400 Units Tab PO 400 units DAILY STEPHEINE Administration Diltiazem HCl 30 mg 09/20/20 11:30 09/23/20 11:30 Diltiazem Hcl 30 Mg Tablet PO 30 mg ACHS STEPHENIE Administration Enoxaparin Sodium 80 mg 09/21/20 21:00 09/23/20 09:46 Enoxaparin Sodium 80 Mg/0.8 Ml Syringe SC 80 mg 0900,2100 STEPHENIE Administration Famotidine 20 mg 09/21/20 21:00 09/22/20 21:18 Famotidine/Pf 20 Mg/2ml Vial SLOW IVP 20 mg HS STEPHENIE Administration Guaifenesin 200 mg 09/20/20 20:30 09/23/20 10:03 Diabetic Tussin 200 Mg/10 Ml Udcup PO 200 mg Q4H PRN Administration Cough Dexamethasone 6 mg/ Sodium 51.5 mls @ 100 mls/hr 09/20/20 09:00 09/23/20 09:46 Chloride IVPB 51.5 mls DAILY STEPHENIE Administration Insulin Glargine 25 units/ 0.25 mls @ 0 mls/hr 09/22/20 21:00 09/22/20 21:16 Miscellaneous Medication SC 0.25 mls HS STEPHENIE Administration Insulin Glargine 25 units/ 0.25 mls @ 0 mls/hr 09/22/20 09:00 09/23/20 09:48 Miscellaneous Medication SC 0.25 mls QAM STEPHENIE Administration Insulin Human Lispro 0 units 09/20/20 09:17 09/23/20 11:31 Humalog 300 Units/3 Ml Vial SC 4 unit .MODERATE SLIDING SC PRN Administration Moderate Correctional Scale Insulin Human Lispro 0 units 09/20/20 09:17 09/22/20 21:16 Humalog 300 Units/3 Ml Vial SC 4 unit .BEDTIME SLIDING SC PRN Administration Bedtime Correctional Scale Metformin HCl 500 mg 09/22/20 17:00 09/23/20 09:45 Metformin 500 Mg Tab PO 500 mg BID-WM STEPHENIE Administration Metoprolol Tartrate 25 mg 09/22/20 09:00 09/23/20 09:45 Metoprolol Tartrate 25 Mg Tab PO 25 mg BID STEPHENIE Administration Saccharomyces Boulardii 250 mg 09/20/20 12:00 09/23/20 11:30 Saccharomyces Boulardii 250 Mg Cap PO 250 mg 1200 STEPHENIE Administration Sodium Chloride 10 ml 09/21/20 21:00 09/23/20 11:27 Flush - Normal Saline 10 Ml Syringe IVF 10 ml Q12HR STEPHENIE Administration Tamsulosin HCl 0.4 mg 09/20/20 21:00 09/23/20 09:45 Tamsulosin Hcl 0.4 Mg Cap PO 0.4 mg BID STEPHENIE Administration Zinc Sulfate 220 mg 09/22/20 09:00 09/23/20 11:27 Zinc Sulfate 220 Mg Cap PO Not Given DAILY STEPHENIE - Exam General Appearance: awake alert ENT: normocephalic atraumatic Neck: supple, no JVD Heart: RRR Respiratory: normal chest expansion, no tachypnea, rhonchi Gastrointestinal: soft Extremities: no cyanosis, no clubbing Hosp A/P (1) Acute respiratory failure with hypoxia Code(s): J96.01 - ACUTE RESPIRATORY FAILURE WITH HYPOXIA Status: Acute (2) Atrial fibrillation Code(s): I48.91 - UNSPECIFIED ATRIAL FIBRILLATION Status: Acute (3) Pneumonia due to COVID-19 virus Code(s): U07.1 - COVID-19; J12.82 - PNEUMONIA DUE TO CORONAVIRUS DISEASE 2018 Status: Acute (4) Diabetes mellitus type 2 in obese Code(s): E11.69 - TYPE 2 DIABETES MELLITUS WITH OTHER SPECIFIED COMPLICATION; E66.9 - OBESITY, UNSPECIFIED Status: Chronic (5) Metabolic encephalopathy Code(s): G93.41 - METABOLIC ENCEPHALOPATHY Status: Resolved - Plan Continue supplemental oxygen to maintain O2 saturations greater than 92%. Continue dexamethasone and enoxaparin. Lantus dose was increased last night. Continue sliding scale and monitor blood sugars.
[2020-09-23] MEDS: Famotidine/PF 20 mg/2ml Vial SLOW IVP SCH (21:00)
[2020-09-24 05:36] LABS: Anion Gap 15 mmol/L (10-20); BUN (Urea Nitrogen) 26 mg/dL (8.4-25.7); CRP (Inflammatory) 4.43 mg/dL (= or < 0.5); Calc. Creatinine Clearance 92 mL/min (70-130); Calcium 8.4 mg/dL (7.8-10.44); Carbon Dioxide 23 mmol/L (23-31); Chloride 108 mmol/L (98-107); Glucose 233 mg/dL (83-110); Potassium 3.9 mmol/L (3.5-5.1); Sodium 142 mmol/L (136-145)
[2020-09-24] MEDS: Enoxaparin Sodium 80 MG/0.8 ML SYRINGE SC SCH ×2 (07:47→19:55)
[2020-09-24] MEDS: Cholecalciferol (Vitamin D3) 400 UNITS TAB PO SCH (07:50)
[2020-09-24] MEDS: Tamsulosin HCl 0.4 MG CAP PO SCH ×2 (07:50→19:55)
[2020-09-24] MEDS: Metoprolol Tartrate 25 MG TAB PO SCH ×2 (07:50→19:55)
[2020-09-24] MEDS: Ascorbic Acid 500 mg Chewable Tablet PO SCH (07:50)
[2020-09-24] MEDS: Zinc Sulfate 220 MG CAP PO SCH (07:51)
[2020-09-24] MEDS: Dexamethasone 6 MG in Sodium Chloride 0.9% 50 ML IVPB SCH (07:58)
--- NOTE | 2020-09-24 08:48 | PDOC.HOSPP ---
- Subjective Encounter Date: 09/24/20 Encounter Time: 08:46 Subjective: Mr. Cohen was seen today in follow-up of COVID pneumonia and respiratory failure. His oxygen requirements increased last night. He was on a NRB . He has been transitioned to high flow and says he feels comfortable. He is still oriented X 4 so far. - Objective Vital Signs & Weight: Vital Signs (12 hours) Temp Pulse Resp BP BP Pulse Ox 09/24/20 07:50 97.9 F 103 H 22 H 137/80 95 09/24/20 04:00 98.7 F 106 H 21 H 149/90 H 97 09/23/20 23:45 96.5 F L 95 22 H 126/79 93 L 09/23/20 21:00 97.8 F 120 H 24 H 106/71 87 L Weight Weight 190 lb I&O: 09/23/20 09/24/20 09/25/20 06:59 06:59 06:59 Intake Total 1200 1037 Output Total 1300 1200 Balance -100 -163 Result Diagrams: 09/23/20 05:08 09/24/20 04:32 Additional Labs: Accuchecks 09/23/20 09/23/20 09/23/20 21:18 16:30 10:48 POC Glucose 231 H 202 H 240 H Hospitalist ROS - Medication Medications: Active Medications Generic Name Dose Route Start Last Admin Trade Name Freq PRN Reason Stop Dose Admin Acetaminophen 650 mg 09/19/20 15:31 09/22/20 21:16 Acetaminophen 325 Mg Tab PO 650 mg Q4H PRN Administration Headache/Fever/Mild Pain (1-3) Albuterol Sulfate 2 puff 09/21/20 00:35 09/23/20 17:14 Albuterol 200 Puff (6.7gm Inhaler) INH 2 puff Q6H PRN Administration SOB &/or Wheezing Ascorbic Acid 1,000 mg 09/22/20 09:00 09/24/20 07:50 Ascorbic Acid 500 Mg Chewable Tablet PO 1,000 mg DAILY STEPHENIE Administration Cholecalciferol 400 units 09/22/20 09:00 09/24/20 07:50 Cholecalciferol (Vitamin D3) 400 Units Tab PO 400 units DAILY STEPHENIE Administration Diltiazem HCl 30 mg 09/20/20 11:30 09/24/20 07:49 Diltiazem Hcl 30 Mg Tablet PO 30 mg ACHS STEPHENIE Administration Enoxaparin Sodium 80 mg 09/21/20 21:00 09/24/20 07:47 Enoxaparin Sodium 80 Mg/0.8 Ml Syringe SC 80 mg 0900,2100 STEPHENIE Administration Famotidine 20 mg 09/21/20 21:00 09/23/20 21:00 Famotidine/Pf 20 Mg/2ml Vial SLOW IVP 20 mg HS STEPHENIE Administration Guaifenesin 200 mg 09/20/20 20:30 09/23/20 21:02 Diabetic Tussin 200 Mg/10 Ml Udcup PO 200 mg Q4H PRN Administration Cough Dexamethasone 6 mg/ Sodium 51.5 mls @ 100 mls/hr 09/20/20 09:00 09/24/20 07:58 Chloride IVPB 51.5 mls DAILY STEPHENIE Administration Insulin Glargine 25 units/ 0.25 mls @ 0 mls/hr 09/22/20 21:00 09/23/20 21:00 Miscellaneous Medication SC 0.25 mls HS STEPHENIE Administration Insulin Glargine 25 units/ 0.25 mls @ 0 mls/hr 09/22/20 09:00 09/23/20 09:48 Miscellaneous Medication SC 0.25 mls QAM STEPHENIE Administration Insulin Human Lispro 0 units 09/20/20 09:17 09/23/20 17:07 Humalog 300 Units/3 Ml Vial SC 4 unit .MODERATE SLIDING SC PRN Administration Moderate Correctional Scale Insulin Human Lispro 0 units 09/20/20 09:17 09/23/20 21:22 Humalog 300 Units/3 Ml Vial SC 2 unit .BEDTIME SLIDING SC PRN Administration Bedtime Correctional Scale Metoprolol Tartrate 25 mg 09/22/20 09:00 09/24/20 07:50 Metoprolol Tartrate 25 Mg Tab PO 25 mg BID STEPHENIE Administration Saccharomyces Boulardii 250 mg 09/20/20 12:00 09/23/20 11:30 Saccharomyces Boulardii 250 Mg Cap PO 250 mg 1200 STEPHENIE Administration Sodium Chloride 10 ml 09/21/20 21:00 09/24/20 07:49 Flush - Normal Saline 10 Ml Syringe IVF 10 ml Q12HR STEPHENIE Administration Tamsulosin HCl 0.4 mg 09/20/20 21:00 09/24/20 07:50 Tamsulosin Hcl 0.4 Mg Cap PO 0.4 mg BID STEPHENIE Administration Zinc Sulfate 220 mg 09/22/20 09:00 09/24/20 07:51 Zinc Sulfate 220 Mg Cap PO 220 mg DAILY STEPHENIE Administration - Exam General Appearance: NAD Eye: PERRL, anicteric sclera Heart: RRR, no murmur, no gallops, no rubs, normal peripheral pulses Respiratory: rales (at both bases and throughout) Gastrointestinal: soft, non-tender, non-distended, normal bowel sounds, no palpable masses, no hepatomegaly Extremities: no cyanosis, 1+ LE edema (+ palpable d.p. pulses bilaterally, no lesions) Hosp A/P (1) Pneumonia due to COVID-19 virus Code(s): U07.1 - COVID-19; J12.82 - PNEUMONIA DUE TO CORONAVIRUS DISEASE 2018 Status: Acute (2) Diabetes mellitus type 2 in obese Code(s): E11.69 - TYPE 2 DIABETES MELLITUS WITH OTHER SPECIFIED COMPLICATION; E66.9 - OBESITY, UNSPECIFIED Status: Chronic (3) Metabolic encephalopathy Code(s): G93.41 - METABOLIC ENCEPHALOPATHY Status: Resolved (4) Atrial fibrillation Code(s): I48.91 - UNSPECIFIED ATRIAL FIBRILLATION Status: Acute (5) Sepsis Code(s): A41.9 - SEPSIS, UNSPECIFIED ORGANISM Status: Acute (6) DKA, type 2 Code(s): E11.10 - TYPE 2 DIABETES MELLITUS WITH KETOACIDOSIS WITHOUT COMA Status: Acute - Plan * COVID pneumonia - his oxygen requirements increased overnight- however, he is now comfortable on high flow. Will repeat a Chest X-ray at this time * Continue Decadron IV * AFIB with RVR- heart rate is better- continue Lovenox * DM- blood glucose is still elevated- will increase his dose of Metformin * SUZANNE- resolved * Hypernatremia- resolved * HTN- blood pressure is trending down
[2020-09-24] MEDS: Insulin Glargine 25 UNITS in Pre-Filled Syringe 1 EACH SC SCH (09:48)
[2020-09-24] MEDS: metFORMIN 500 MG TAB PO SCH ×2 (09:49→17:01)
--- NOTE | 2020-09-24 09:49 | RAD ---
EXAM: Portable chest PROVIDED CLINICAL HISTORY: Covid pneumonia COMPARISON: None FINDINGS: Cardiac and mediastinal silhouette is within normal limits. Minimal patchy interstitial opacities are redemonstrated, similar to prior. No confluent/lobar consolidation, pleural fluid or pneumothorax apparent. IMPRESSION: Stable radiographic appearance of the chest.
[2020-09-24 10:30] LABS: Actual Bicarbonate (HCO3a) 23.9 mEq/L (22-28); CO2 Tension 30.5 mmHg (35.0-45.0); Carboxyhemoglobin (COHb) 0.3 gm% (0.0-3.0); Hemoglobin (Hb) 16.8 g/dL (14.0-18.0); Potassium - ABG Lab 3.81 mmol/L (3.70-5.30); pH, Arterial 7.51 (7.35-7.45)
[2020-09-24 10:33] LABS: ALV-art Gradient 233.055 mmHg (0-20); O2 Tension (PaO2), arterial 56.8 mmHg (> 70.0); Puncture Site RRA
--- NOTE | 2020-09-24 10:42 | CT ---
CT HEAD WITHOUT IV CONTRAST COMPARISON: None HISTORY: Level 1 stroke alert. Code green. Patient left-sided weakness, slurred speech and last seen normal 4 5 minutes ago. TECHNIQUE: Axial CT imaging at 5 mm intervals from vertex through skull base without contrast FINDINGS: Small low-density focus seen in the right caudate nucleus related to remote lacunar infarction. There is decreased attenuation in the periventricular white matter which is nonspecific but likely reflective of chronic small vessel ischemic changes. There is mild cerebral volume loss. The ventricular system is normal in size, shape, and position for the degree of sulcal atrophy. There is no evidence of an acute infarction, hemorrhage, mass effect, or midline shift. Vascular calcifications are seen in the carotid siphons and in the distal vertebral arteries. Visualized paranasal sinuses are clear. Osseous structures appear intact. Mild scalp soft tissue swelling is seen in the posterior left parie regi region near the vertex. IMPRESSION: 1. No acute intracranial abnormality demonstrated. 2. Chronic small vessel ischemic changes and cerebral volume loss. 3. Small scalp hematoma right parietal region. 4. Above findings discussed with Dr. Gutierrez in the emergency room on 09/24/2020 at 1039 hours.
--- NOTE | 2020-09-24 10:54 | PDOC.BPN ---
- Brief Progress Note Encounter Date: 09/24/20 Encounter Time: 11:19 Mr. Cohen was seen due to change in mental status. He is more lethargic and difficult to arouse. He is moving all extremities Lungs- rales in the bases Blood glucose was in the low 100's Will call a stroke code, and get a stat CT brain Case discussed with the ER physician media consultant.
--- NOTE | 2020-09-24 11:12 | CT ---
CT ANGIOGRAM NECK WITH CONTRAST CT ANGIOGRAM BRAIN WITH CONTRAST: DATE: 09/24/2020 10:40 AM HISTORY: 75-year-old male level 1 stroke. Altered mental status and left-sided weakness with dysarthria. Dr. Weber gave verbal report for this study to Dr. Gutierrez at 11:06 AM 09/24/2020 TECHNIQUE: After IV contrast injection, arterial bolus chasing technique scan performed from 4 cm inferior to ca jake to vertex of head. Coronal and sagittal 3-D MIP reconstructions. FINDINGS: There are are numerous small patchy focal groundglass infiltrates in the bilateral upper lobes, and v isualized portions of superior segments of bilateral lower lobes, mostly peripheral, but some central. Aortic arch: Ectasia. Atherosclerotic calcification. No dissection. Brachiocephalic: No high-grade stenosis. Right subclavian: No stenosis. Left subclavian: Calcified plaque at origin. Tortuous. No stenosis. Left vertebral: No high-grade acquired stenosis identified. Diffusely small caliber. Right vertebral: Dominant. No stenosis. Atherosclerosis at intracranial segment without high-grade st enosis. Right common carotid: No stenosis. Left common carotid: No stenosis. Right internal carotid: Mild plaque at origin. No high-grade stenosis in cervical portion. Left internal carotid: Moderate focal calcified atheromatous plaque at proximal vessel, with estimate d approximately 50-60% stenosis at origin. Bilateral carotid siphons: Bilateral calcified atherosclerotic plaque. At right supraclinoid internal carotid, the plaque is heavily calcified, making it difficult to estimate the degree of stenosis. Moderate to severe stenosis. Bilateral MCA: No M1 segment occlusion or thrombosis. Bilateral ACAs: A1 and A2 segments patent. Basilar: Atherosclerotic irregularity. No high-grade stenosis. Bilateral tug master: P1 and P2 segments patent Bilateral superior cerebellar: Proximal portions patent IMPRESSION: 1) evidence for COVID-19 pneumonia. 2) chronic high-grade stenosis due to heavily calcified plaque at right supraclinoid internal carotid . 3) moderate stenosis at origin of left internal carotid.
[2020-09-24 12:11] LABS: #Eosinphils 0.1 thou/uL (0.0-0.7); #Lymphocytes 1.1 thou/uL (1.20-3.40); #Monocytes 0.9 thou/uL (0.11-0.59); #Neutrophils 7.8 thou/uL (1.40-6.50); %Eosinophils 0.7 % (0.0-10.0); %Lymphocytes 11.3 % (21.0-51.0); %Monocytes 8.6 % (0.0-10.0); %Neutrophils 79.3 % (42.0-75.0); Hemoglobin 15.5 g/dL (14.0-18.0); Mean Corpuscular HGB CONC 33.8 g/dL (32.0-36.0); Mean Corpuscular Hemoglobin 31.1 pg (27.0-31.0); Mean Corpuscular Volume 91.8 fL (78.0-98.0); Mean Platelet Volume 9.3 fL (7.4-10.4); Platelet Count 271 thou/uL (130-400); RBC Distribution Width 11.4 % (11.5-14.5); Red Blood Cell (RBC) Count 4.97 mill/uL (4.70-6.10); White Blood Cell (WBC) Count 9.9 thou/uL (4.8-10.8)
[2020-09-24 12:26] LABS: INR-International Normal Ratio 1.1; Prothrombin Time 14.5 sec (12.0-14.7)
[2020-09-24 12:27] LABS: PTT 33.7 sec (22.9-36.1)
[2020-09-24 12:30] LABS: ALT (SGPT) 55 U/L (8-55); AST (SGOT) 69 U/L (5-34); Albumin 2.8 g/dL (3.4-4.8); Alkaline Phosphatase 87 U/L (40-110); Anion Gap 15 mmol/L (10-20); BUN (Urea Nitrogen) 28 mg/dL (8.4-25.7); Bilirubin, Total 0.9 mg/dL (0.2-1.2); CK (CPK) 88 U/L (30-200); Calc. Creatinine Clearance 83 mL/min (70-130); Calcium 8.2 mg/dL (7.8-10.44); Carbon Dioxide 24 mmol/L (23-31); Chloride 107 mmol/L (98-107); Globulin 3.3 g/dL (2.4-3.5); Glucose 214 mg/dL (83-110); Potassium 4.2 mmol/L (3.5-5.1); Protein, Total 6.1 g/dL (5.8-8.1); Sodium 142 mmol/L (136-145)
[2020-09-24] MEDS: Saccharomyces boulardii 250 MG CAP PO SCH (12:45)
[2020-09-24 12:53] LABS: CKMB 1.7 ng/mL (0-6.6)
[2020-09-24] MEDS ORDERED: Iopamidol-370 76% 500 ML 1 ML ONE (13:50)
[2020-09-24] MEDS: HumaLOG 300 UNITS/3 ML VIAL SC PRN (17:02)
[2020-09-24] MEDS: Diabetic Tussin 200 MG/10 ML UDCUP PO PRN (19:55)
[2020-09-24] MEDS: Famotidine/PF 20 mg/2ml Vial SLOW IVP SCH (19:55)
[2020-09-24] MEDS: Insulin Glargine 30 UNITS in Pre-Filled Syringe 1 EACH SC SCH (22:06)
[2020-09-25] MEDS: Diabetic Tussin 200 MG/10 ML UDCUP PO PRN ×2 (04:02→09:48)
[2020-09-25 05:51] LABS: Anion Gap 13 mmol/L (10-20); BUN (Urea Nitrogen) 26 mg/dL (8.4-25.7); Calc. Creatinine Clearance 85 mL/min (70-130); Calcium 8.3 mg/dL (7.8-10.44); Carbon Dioxide 26 mmol/L (23-31); Chloride 109 mmol/L (98-107); Glucose 194 mg/dL (83-110); Potassium 3.9 mmol/L (3.5-5.1); Sodium 144 mmol/L (136-145)
[2020-09-25] MEDS: HumaLOG 300 UNITS/3 ML VIAL SC PRN ×2 (06:14→17:00)
[2020-09-25] MEDS: Ascorbic Acid 500 mg Chewable Tablet PO SCH (07:30)
[2020-09-25] MEDS: metFORMIN 500 MG TAB PO SCH ×2 (07:30→17:00)
[2020-09-25] MEDS: Zinc Sulfate 220 MG CAP PO SCH (07:30)
[2020-09-25] MEDS: Tamsulosin HCl 0.4 MG CAP PO SCH ×2 (07:30→21:18)
[2020-09-25] MEDS: Cholecalciferol (Vitamin D3) 400 UNITS TAB PO SCH (07:30)
[2020-09-25] MEDS: Metoprolol Tartrate 25 MG TAB PO SCH ×2 (07:31→21:20)
[2020-09-25] MEDS: Enoxaparin Sodium 80 MG/0.8 ML SYRINGE SC SCH ×2 (07:31→21:19)
--- NOTE | 2020-09-25 09:44 | CT ---
CT ANGIOGRAM NECK WITH CONTRAST CT ANGIOGRAM BRAIN WITH CONTRAST: DATE: 09/24/2020 10:40 AM HISTORY: 75-year-old male level 1 stroke. Altered mental status and left-sided weakness with dysarthria. Dr. Weber gave verbal report for this study to Dr. Gutierrez at 11:06 AM 09/24/2020 TECHNIQUE: After IV contrast injection, arterial bolus chasing technique scan performed from 4 cm inferior to ca jake to vertex of head. Coronal and sagittal 3-D MIP reconstructions. FINDINGS: There are are numerous small patchy focal groundglass infiltrates in the bilateral upper lobes, and v isualized portions of superior segments of bilateral lower lobes, mostly peripheral, but some central. Aortic arch: Ectasia. Atherosclerotic calcification. No dissection. Brachiocephalic: No high-grade stenosis. Right subclavian: No stenosis. Left subclavian: Calcified plaque at origin. Tortuous. No stenosis. Left vertebral: No high-grade acquired stenosis identified. Diffusely small caliber. Right vertebral: Dominant. No stenosis. Atherosclerosis at intracranial segment without high-grade st enosis. Right common carotid: No stenosis. Left common carotid: No stenosis. Right internal carotid: Mild plaque at origin. No high-grade stenosis in cervical portion. Left internal carotid: Moderate focal calcified atheromatous plaque at proximal vessel, with estimate d approximately 50-60% stenosis at origin. Bilateral carotid siphons: Bilateral calcified atherosclerotic plaque. At right supraclinoid internal carotid, the plaque is heavily calcified, making it difficult to estimate the degree of stenosis. Moderate to severe stenosis. Bilateral MCA: No M1 segment occlusion or thrombosis. Bilateral ACAs: A1 and A2 segments patent. Basilar: Atherosclerotic irregularity. No high-grade stenosis. Bilateral pulp screen operator: P1 and P2 segments patent Bilateral superior cerebellar: Proximal portions patent IMPRESSION: 1) evidence for COVID-19 pneumonia. 2) chronic high-grade stenosis due to heavily calcified plaque at right supraclinoid internal carotid . 3) moderate stenosis at origin of left internal carotid. Transcribed Date/Time: 09/25/2020 9:43 AM
[2020-09-25] MEDS: Insulin Glargine 25 UNITS in Pre-Filled Syringe 1 EACH SC SCH (09:47)
[2020-09-25] MEDS: Dexamethasone 6 MG in Sodium Chloride 0.9% 50 ML IVPB SCH (09:48)
--- NOTE | 2020-09-25 11:48 | PDOC.HOSPP ---
- Subjective Encounter Date: 09/25/20 Encounter Time: 11:46 Subjective: Mr. Cohen was seen today in follow-up of COVID pneumonia and DKA. His mental status resolved about an hour following the code green yesterday. Unclear the etiology, possibly a TIA. Today He is oriented X4, and awake. He is a little more subdued as compared to yesterday, but able to answer questions and interact. He says he is a bit down. - Objective Vital Signs & Weight: Vital Signs (12 hours) Temp Pulse Resp BP Pulse Ox 09/25/20 08:15 95 09/25/20 07:31 98 F 100 25 H 117/81 95 09/25/20 07:30 95 09/25/20 03:23 98.3 F 73 22 H 117/80 99 Weight Weight 181 lb I&O: 09/24/20 09/25/20 09/26/20 06:59 06:59 06:59 Intake Total 1037 1870 Output Total 1200 875 Balance -163 995 Result Diagrams: 09/24/20 11:43 09/25/20 04:34 Additional Labs: Accuchecks 09/25/20 09/24/20 09/24/20 10:44 21:39 16:27 POC Glucose 144 H 211 H 332 H Hospitalist ROS - Medication Medications: Active Medications Generic Name Dose Route Start Last Admin Trade Name Freq PRN Reason Stop Dose Admin Acetaminophen 650 mg 09/19/20 15:31 09/22/20 21:16 Acetaminophen 325 Mg Tab PO 650 mg Q4H PRN Administration Headache/Fever/Mild Pain (1-3) Albuterol Sulfate 2 puff 09/21/20 00:35 09/23/20 17:14 Albuterol 200 Puff (6.7gm Inhaler) INH 2 puff Q6H PRN Administration SOB &/or Wheezing Ascorbic Acid 1,000 mg 09/22/20 09:00 09/25/20 07:30 Ascorbic Acid 500 Mg Chewable Tablet PO 1,000 mg DAILY STEPHENIE Administration Cholecalciferol 400 units 09/22/20 09:00 09/25/20 07:30 Cholecalciferol (Vitamin D3) 400 Units Tab PO 400 units DAILY STEPHENIE Administration Diltiazem HCl 30 mg 09/20/20 11:30 09/25/20 07:30 Diltiazem Hcl 30 Mg Tablet PO 30 mg ACHS STEPHENIE Administration Enoxaparin Sodium 80 mg 09/21/20 21:00 09/25/20 07:31 Enoxaparin Sodium 80 Mg/0.8 Ml Syringe SC 80 mg 0900,2100 STEPHENIE Administration Famotidine 20 mg 09/21/20 21:00 09/24/20 19:55 Famotidine/Pf 20 Mg/2ml Vial SLOW IVP 20 mg HS STEPHENIE Administration Guaifenesin 200 mg 09/20/20 20:30 09/25/20 09:48 Diabetic Tussin 200 Mg/10 Ml Udcup PO 200 mg Q4H PRN Administration Cough Dexamethasone 6 mg/ Sodium 51.5 mls @ 100 mls/hr 09/20/20 09:00 09/25/20 09:48 Chloride IVPB 51.5 mls DAILY STEPHENIE Administration Insulin Glargine 25 units/ 0.25 mls @ 0 mls/hr 09/22/20 09:00 09/25/20 09:47 Miscellaneous Medication SC 0.25 mls QAM STEPHENIE Administration Insulin Glargine 30 units/ 0.3 mls @ 0 mls/hr 09/24/20 21:00 09/24/20 22:06 Miscellaneous Medication SC 0.3 mls HS STEPHENIE Administration Insulin Human Lispro 0 units 09/20/20 09:17 09/25/20 06:14 Humalog 300 Units/3 Ml Vial SC 2 unit .MODERATE SLIDING SC PRN Administration Moderate Correctional Scale Insulin Human Lispro 0 units 09/20/20 09:17 09/23/20 21:22 Humalog 300 Units/3 Ml Vial SC 2 unit .BEDTIME SLIDING SC PRN Administration Bedtime Correctional Scale Metformin HCl 1,000 mg 09/24/20 07:42 09/25/20 07:30 Metformin 500 Mg Tab PO 1,000 mg BID-WM STEPHENIE Administration Metoprolol Tartrate 25 mg 09/22/20 09:00 09/25/20 07:31 Metoprolol Tartrate 25 Mg Tab PO 25 mg BID STEPHENIE Administration Saccharomyces Boulardii 250 mg 09/20/20 12:00 09/24/20 12:45 Saccharomyces Boulardii 250 Mg Cap PO 250 mg 1200 STEPHENIE Administration Sodium Chloride 10 ml 09/21/20 21:00 09/25/20 07:30 Flush - Normal Saline 10 Ml Syringe IVF 10 ml Q12HR STEPHENIE Administration Tamsulosin HCl 0.4 mg 09/20/20 21:00 09/25/20 07:30 Tamsulosin Hcl 0.4 Mg Cap PO 0.4 mg BID STEPHENIE Administration Zinc Sulfate 220 mg 09/22/20 09:00 09/25/20 07:30 Zinc Sulfate 220 Mg Cap PO 220 mg DAILY STEPHENIE Administration - Exam Eye: PERRL, anicteric sclera Heart: RRR, no murmur, no gallops, no rubs, normal peripheral pulses Respiratory: rales (at the bases bilaterally) Gastrointestinal: soft, non-tender, non-distended, normal bowel sounds, no palpable masses Extremities: no cyanosis (+ good distal pulses bilaterally. no lesions), 1+ LE edema Hosp A/P (1) Pneumonia due to COVID-19 virus Code(s): U07.1 - COVID-19; J12.82 - PNEUMONIA DUE TO CORONAVIRUS DISEASE 2018 Status: Acute (2) Diabetes mellitus type 2 in obese Code(s): E11.69 - TYPE 2 DIABETES MELLITUS WITH OTHER SPECIFIED COMPLICATION; E66.9 - OBESITY, UNSPECIFIED Status: Chronic (3) Metabolic encephalopathy Code(s): G93.41 - METABOLIC ENCEPHALOPATHY Status: Resolved (4) Atrial fibrillation Code(s): I48.91 - UNSPECIFIED ATRIAL FIBRILLATION Status: Acute (5) Sepsis Code(s): A41.9 - SEPSIS, UNSPECIFIED ORGANISM Status: Acute (6) DKA, type 2 Code(s): E11.10 - TYPE 2 DIABETES MELLITUS WITH KETOACIDOSIS WITHOUT COMA Status: Acute - Plan * COVID pneumonia - He is stable on high flow oxygen * Continue Decadron IV * AFIB with RVR- heart rate is better- continue Lovenox for CVA protection * DM- blood glucose is still elevated- will continue to titrate insulin * HTN- blood pressure is stable * Prognosis is guarded- due to the waxing and waning medical status and his co- morbid conditions, and length of current illness
[2020-09-25] MEDS: Saccharomyces boulardii 250 MG CAP PO SCH (12:10)
[2020-09-25] MEDS: Acetaminophen 325 MG TAB PO PRN (21:18)
[2020-09-25] MEDS: Famotidine/PF 20 mg/2ml Vial SLOW IVP SCH (21:20)
[2020-09-25] MEDS: Insulin Glargine 30 UNITS in Pre-Filled Syringe 1 EACH SC SCH (21:22)
[2020-09-26 05:36] LABS: Anion Gap 14 mmol/L (10-20); BUN (Urea Nitrogen) 21 mg/dL (8.4-25.7); Calc. Creatinine Clearance 88 mL/min (70-130); Calcium 8.2 mg/dL (7.8-10.44); Carbon Dioxide 26 mmol/L (23-31); Chloride 107 mmol/L (98-107); Glucose 105 mg/dL (83-110); Potassium 3.8 mmol/L (3.5-5.1); Sodium 143 mmol/L (136-145)
[2020-09-26] MEDS: metFORMIN 500 MG TAB PO SCH ×2 (08:28→16:31)
[2020-09-26] MEDS: Albuterol 200 PUFF (6.7GM INHALER) INH PRN ×2 (08:28→16:31)
[2020-09-26] MEDS: Ascorbic Acid 500 mg Chewable Tablet PO SCH (08:29)
[2020-09-26] MEDS: Cholecalciferol (Vitamin D3) 400 UNITS TAB PO SCH (08:29)
[2020-09-26] MEDS: Metoprolol Tartrate 25 MG TAB PO SCH ×2 (08:29→21:13)
[2020-09-26] MEDS: Enoxaparin Sodium 80 MG/0.8 ML SYRINGE SC SCH ×2 (08:29→21:16)
[2020-09-26] MEDS: Tamsulosin HCl 0.4 MG CAP PO SCH ×2 (08:30→21:13)
[2020-09-26] MEDS: Zinc Sulfate 220 MG CAP PO SCH (08:30)
[2020-09-26] MEDS: Insulin Glargine 25 UNITS in Pre-Filled Syringe 1 EACH SC SCH (08:33)
[2020-09-26] MEDS: Dexamethasone 6 MG in Sodium Chloride 0.9% 50 ML IVPB SCH (08:33)
[2020-09-26] MEDS: HumaLOG 300 UNITS/3 ML VIAL SC PRN ×2 (12:29→16:31)
[2020-09-26] MEDS: Diabetic Tussin 200 MG/10 ML UDCUP PO PRN ×3 (12:33→21:21)
[2020-09-26] MEDS: Saccharomyces boulardii 250 MG CAP PO SCH (12:33)
--- NOTE | 2020-09-26 17:20 | PDOC.HOSPP ---
- Subjective Encounter Date: 09/26/20 Encounter Time: 08:30 Subjective: Patient seen for follow-up for COVID-19 pneumonia. Reports feeling better. - Objective Vital Signs & Weight: Vital Signs (12 hours) Temp Pulse Resp BP Pulse Ox 09/26/20 16:26 98.0 F 87 22 H 117/67 99 09/26/20 11:11 97.7 F 104 H 20 104/61 100 09/26/20 08:00 98.1 F 91 19 118/77 98 Weight Weight 181 lb I&O: 09/25/20 09/26/20 09/27/20 06:59 06:59 06:59 Intake Total 1870 1530 750 Output Total 875 1350 750 Balance 995 180 0 Result Diagrams: 09/24/20 11:43 09/26/20 04:37 Additional Labs: Accuchecks 09/26/20 09/26/20 09/25/20 16:01 11:11 20:19 POC Glucose 272 H 180 H 175 H Labs and MAR reviewed by nm Hospitalist ROS - Review of Systems Cardiovascular: denies: chest pain, palpitations, orthopnea, paroxysmal noc. dyspnea, edema, light headedness Gastrointestinal: denies: nausea, vomiting, abdominal pain, diarrhea, constipation, melena, hematochezia - Medication Medications: Active Medications Generic Name Dose Route Start Last Admin Trade Name Freq PRN Reason Stop Dose Admin Acetaminophen 650 mg 09/19/20 15:31 09/25/20 21:18 Acetaminophen 325 Mg Tab PO 650 mg Q4H PRN Administration Headache/Fever/Mild Pain (1-3) Albuterol Sulfate 2 puff 09/21/20 00:35 09/26/20 16:31 Albuterol 200 Puff (6.7gm Inhaler) INH 2 puff Q6H PRN Administration SOB &/or Wheezing Ascorbic Acid 1,000 mg 09/22/20 09:00 09/26/20 08:29 Ascorbic Acid 500 Mg Chewable Tablet PO 1,000 mg DAILY STEPHENIE Administration Cholecalciferol 400 units 09/22/20 09:00 09/26/20 08:29 Cholecalciferol (Vitamin D3) 400 Units Tab PO 400 units DAILY STEPHENIE Administration Diltiazem HCl 30 mg 09/20/20 11:30 09/26/20 16:31 Diltiazem Hcl 30 Mg Tablet PO 30 mg ACHS STEPHENIE Administration Enoxaparin Sodium 80 mg 09/21/20 21:00 09/26/20 08:29 Enoxaparin Sodium 80 Mg/0.8 Ml Syringe SC 80 mg 0900,2100 STEPHENIE Administration Famotidine 20 mg 09/21/20 21:00 09/25/20 21:20 Famotidine/Pf 20 Mg/2ml Vial SLOW IVP 20 mg HS STEPHENIE Administration Guaifenesin 200 mg 09/20/20 20:30 09/26/20 16:31 Diabetic Tussin 200 Mg/10 Ml Udcup PO 200 mg Q4H PRN Administration Cough Dexamethasone 6 mg/ Sodium 51.5 mls @ 100 mls/hr 09/20/20 09:00 09/26/20 08:33 Chloride IVPB 51.5 mls DAILY STEPHENIE Administration Insulin Glargine 25 units/ 0.25 mls @ 0 mls/hr 09/22/20 09:00 09/26/20 08:33 Miscellaneous Medication SC 0.25 mls QAM STEPHENIE Administration Insulin Glargine 30 units/ 0.3 mls @ 0 mls/hr 09/24/20 21:00 09/25/20 21:22 Miscellaneous Medication SC 0.3 mls HS STEPHENIE Administration Insulin Human Lispro 0 units 09/20/20 09:17 09/26/20 16:31 Humalog 300 Units/3 Ml Vial SC 6 unit .MODERATE SLIDING SC PRN Administration Moderate Correctional Scale Insulin Human Lispro 0 units 09/20/20 09:17 09/23/20 21:22 Humalog 300 Units/3 Ml Vial SC 2 unit .BEDTIME SLIDING SC PRN Administration Bedtime Correctional Scale Metformin HCl 1,000 mg 09/24/20 07:42 09/26/20 16:31 Metformin 500 Mg Tab PO 1,000 mg BID-WM STEPHENIE Administration Metoprolol Tartrate 25 mg 09/22/20 09:00 09/26/20 08:29 Metoprolol Tartrate 25 Mg Tab PO 25 mg BID STEPHENIE Administration Saccharomyces Boulardii 250 mg 09/20/20 12:00 09/26/20 12:33 Saccharomyces Boulardii 250 Mg Cap PO 250 mg 1200 STEPHENIE Administration Sodium Chloride 10 ml 09/21/20 21:00 09/26/20 08:30 Flush - Normal Saline 10 Ml Syringe IVF 10 ml Q12HR STEPHENIE Administration Tamsulosin HCl 0.4 mg 09/20/20 21:00 09/26/20 08:30 Tamsulosin Hcl 0.4 Mg Cap PO 0.4 mg BID STEPHENIE Administration Zinc Sulfate 220 mg 09/22/20 09:00 09/26/20 08:30 Zinc Sulfate 220 Mg Cap PO 220 mg DAILY STEPHENIE Administration - Exam General Appearance: awake alert Eye: anicteric sclera ENT: moist mucosa Neck: supple Heart: RRR Respiratory: rhonchi Gastrointestinal: soft, non-tender Skin: no rashes Psychiatric: normal affect, normal behavior Hosp A/P - Plan Hosp A/P (1) Pneumonia due to COVID-19 virus Code(s): U07.1 - COVID-19; J12.82 - PNEUMONIA DUE TO CORONAVIRUS DISEASE 2019 Status: Acute (2) Diabetes mellitus type 2 in obese Code(s): E11.69 - TYPE 2 DIABETES MELLITUS WITH OTHER SPECIFIED COMPLICATION; E66.9 - OBESITY, UNSPECIFIED Status: Chronic (3) Atrial fibrillation Code(s): I48.91 - UNSPECIFIED ATRIAL FIBRILLATION Status: Acute (4) Sepsis Code(s): A41.9 - SEPSIS, UNSPECIFIED ORGANISM Status: Acute (5) DKA, type 2 Code(s): E11.10 - TYPE 2 DIABETES MELLITUS WITH KETOACIDOSIS WITHOUT COMA Status: Resolved (6) Metabolic encephalopathy Code(s): G93.41 - METABOLIC ENCEPHALOPATHY Status: Resolved - Plan * COVID pneumonia -changes on high flow oxygen, continue. * Continue dexamethasone. * AFIB with RVR-continue therapeutic Lovenox. * DM- blood glucose is still elevated-increase Lantus to 35 units every morning. * HTN- blood pressure is stable
[2020-09-26] MEDS ORDERED: Insulin Glargine 5 UNITS in Pre-Filled Syringe 1 EACH SC SCH (17:30)
[2020-09-26] MEDS: Acetaminophen 325 MG TAB PO PRN (21:12)
[2020-09-26] MEDS: Famotidine/PF 20 mg/2ml Vial SLOW IVP SCH (21:13)
[2020-09-27 05:19] LABS: Anion Gap 11 mmol/L (10-20); BUN (Urea Nitrogen) 22 mg/dL (8.4-25.7); Calc. Creatinine Clearance 92 mL/min (70-130); Calcium 8.3 mg/dL (7.8-10.44); Carbon Dioxide 26 mmol/L (23-31); Chloride 107 mmol/L (98-107); Glucose 129 mg/dL (83-110); Sodium 140 mmol/L (136-145)
[2020-09-27] MEDS: Ascorbic Acid 500 mg Chewable Tablet PO SCH (08:10)
[2020-09-27] MEDS: metFORMIN 500 MG TAB PO SCH ×2 (08:10→17:26)
[2020-09-27] MEDS: Metoprolol Tartrate 25 MG TAB PO SCH ×2 (08:10→21:42)
[2020-09-27] MEDS: Enoxaparin Sodium 80 MG/0.8 ML SYRINGE SC SCH ×2 (08:10→21:42)
[2020-09-27] MEDS: Cholecalciferol (Vitamin D3) 400 UNITS TAB PO SCH (08:10)
[2020-09-27] MEDS: Tamsulosin HCl 0.4 MG CAP PO SCH ×2 (08:11→21:42)
[2020-09-27] MEDS: Zinc Sulfate 220 MG CAP PO SCH (08:11)
[2020-09-27] MEDS: Dexamethasone 6 MG in Sodium Chloride 0.9% 50 ML IVPB SCH (10:34)
[2020-09-27] MEDS: Insulin Glargine 35 UNITS in Pre-Filled Syringe 1 EACH SC SCH (10:39)
[2020-09-27] MEDS: HumaLOG 300 UNITS/3 ML VIAL SC PRN ×2 (11:42→17:26)
[2020-09-27] MEDS: Saccharomyces boulardii 250 MG CAP PO SCH (11:43)
[2020-09-27] MEDS: Diabetic Tussin 200 MG/10 ML UDCUP PO PRN ×2 (11:43→21:42)
--- NOTE | 2020-09-27 16:03 | PDOC.HOSPP ---
- Subjective Encounter Date: 09/27/20 Encounter Time: 09:00 Subjective: Patient seen for follow-up regarding pneumonia secondary to Covid 19 virus infection. Sleepy but arousable. - Objective Vital Signs & Weight: Vital Signs (12 hours) Temp Pulse Resp BP BP BP Pulse Ox 09/27/20 15:40 98.2 F 85 21 H 105/54 L 100 09/27/20 11:30 98.5 F 100 28 H 105/72 96 09/27/20 08:09 98.4 F 103 H 24 H 115/70 96 09/27/20 05:15 100 Weight Weight 181 lb I&O: 09/26/20 09/27/20 09/28/20 06:59 06:59 06:59 Intake Total 1530 1980 Output Total 1350 1750 225 Balance 180 230 -225 Result Diagrams: 09/24/20 11:43 09/27/20 04:40 Additional Labs: Accuchecks 09/27/20 09/27/20 09/26/20 11:31 10:47 21:14 POC Glucose 150 H 158 H 232 H 09/26/20 16:01 POC Glucose 272 H I reviewed patient's labs and MAR EKG Reviewed by me: Yes (Rick bautista on EKG) Hospitalist ROS - Review of Systems Respiratory: reports: SOB with excertion Cardiovascular: denies: chest pain, palpitations, orthopnea, paroxysmal noc. dyspnea, edema, light headedness Gastrointestinal: denies: nausea, vomiting, abdominal pain, diarrhea, co nstipation, melena, hematochezia - Medication Medications: Active Medications Generic Name Dose Route Start Last Admin Trade Name Montyq PRN Reason Stop Dose Admin Acetaminophen 650 mg 09/19/20 15:31 09/26/20 21:12 Acetaminophen 325 Mg Tab PO 650 mg Q4H PRN Administration Headache/Fever/Mild Pain (1-3) Albuterol Sulfate 2 puff 09/21/20 00:35 09/26/20 16:31 Albuterol 200 Puff (6.7gm Inhaler) INH 2 puff Q6H PRN Administration SOB &/or Wheezing Ascorbic Acid 1,000 mg 09/22/20 09:00 09/27/20 08:10 Ascorbic Acid 500 Mg Chewable Tablet PO 1,000 mg DAILY STEPHENIE Administration Cholecalciferol 400 units 09/22/20 09:00 09/27/20 08:10 Cholecalciferol (Vitamin D3) 400 Units Tab PO 400 units DAILY STEPHENIE Administration Diltiazem HCl 30 mg 09/20/20 11:30 09/27/20 11:43 Diltiazem Hcl 30 Mg Tablet PO 30 mg ACHS STEPHENIE Administration Enoxaparin Sodium 80 mg 09/21/20 21:00 09/27/20 08:10 Enoxaparin Sodium 80 Mg/0.8 Ml Syringe SC 80 mg 0900,2100 STEPHENIE Administration Famotidine 20 mg 09/21/20 21:00 09/26/20 21:13 Famotidine/Pf 20 Mg/2ml Vial SLOW IVP 20 mg HS STEPHENIE Administration Guaifenesin 200 mg 09/20/20 20:30 09/27/20 11:43 Diabetic Tussin 200 Mg/10 Ml Udcup PO 200 mg Q4H PRN Administration Cough Dexamethasone 6 mg/ Sodium 51.5 mls @ 100 mls/hr 09/20/20 09:00 09/27/20 10:34 Chloride IVPB 51.5 mls DAILY STEPHENIE Administration Insulin Glargine 35 units/ 0.35 mls @ 0 mls/hr 09/27/20 09:00 09/27/20 10:39 Miscellaneous Medication SC 0.35 mls QAM STEPHENIE Administration Insulin Human Lispro 0 units 09/20/20 09:17 09/27/20 11:42 Humalog 300 Units/3 Ml Vial SC 2 unit .MODERATE SLIDING SC PRN Administration Moderate Correctional Scale Insulin Human Lispro 0 units 09/20/20 09:17 09/23/20 21:22 Humalog 300 Units/3 Ml Vial SC 2 unit .BEDTIME SLIDING SC PRN Administration Bedtime Correctional Scale Metformin HCl 1,000 mg 09/24/20 07:42 09/27/20 08:10 Metformin 500 Mg Tab PO 1,000 mg BID-WM STEPHENIE Administration Metoprolol Tartrate 25 mg 09/22/20 09:00 09/27/20 08:10 Metoprolol Tartrate 25 Mg Tab PO 25 mg BID STEPHENIE Administration Saccharomyces Boulardii 250 mg 09/20/20 12:00 09/27/20 11:43 Saccharomyces Boulardii 250 Mg Cap PO 250 mg 1200 STEPHENIE Administration Sodium Chloride 10 ml 09/21/20 21:00 09/27/20 08:11 Flush - Normal Saline 10 Ml Syringe IVF 10 ml Q12HR STEPHENIE Administration Tamsulosin HCl 0.4 mg 09/20/20 21:00 09/27/20 08:11 Tamsulosin Hcl 0.4 Mg Cap PO 0.4 mg BID STEPHENIE Administration Zinc Sulfate 220 mg 09/22/20 09:00 09/27/20 08:11 Zinc Sulfate 220 Mg Cap PO 220 mg DAILY STEPHENIE Administration - Exam General Appearance: awake alert Eye: anicteric sclera ENT: no oropharyngeal lesions Neck: supple Heart: irregular Respiratory: CTAB Gastrointestinal: soft Extremities: no edema Skin: no rashes Psychiatric: normal affect, normal behavior Hosp A/P - Plan Hosp A/P (1) Pneumonia due to COVID-19 virus Code(s): U07.1 - COVID-19; J12.82 - PNEUMONIA DUE TO CORONAVIRUS DISEASE 2019 Status: Acute (2) Diabetes mellitus type 2 in obese Code(s): E11.69 - TYPE 2 DIABETES MELLITUS WITH OTHER SPECIFIED COMPLICATION; E66.9 - OBESITY, UNSPECIFIED Status: Chronic (3) Atrial fibrillation Code(s): I48.91 - UNSPECIFIED ATRIAL FIBRILLATION Status: Acute (4) Sepsis Code(s): A41.9 - SEPSIS, UNSPECIFIED ORGANISM Status: Acute (5) DKA, type 2 Code(s): E11.10 - TYPE 2 DIABETES MELLITUS WITH KETOACIDOSIS WITHOUT COMA Status: Resolved (6) Metabolic encephalopathy Code(s): G93.41 - METABOLIC ENCEPHALOPATHY Status: Resolved - Plan * Patient continues to be on high flow oxygen. * Continue dexamethasone. * AFIB with RVR-continue therapeutic Lovenox. * DM- blood glucose also have improved. * HTN-controlled and stable.
[2020-09-27] MEDS: Albuterol 200 PUFF (6.7GM INHALER) INH PRN (17:38)
[2020-09-27] MEDS: Famotidine/PF 20 mg/2ml Vial SLOW IVP SCH (21:50)
[2020-09-28 05:40] LABS: Anion Gap 13 mmol/L (10-20); BUN (Urea Nitrogen) 22 mg/dL (8.4-25.7); Calc. Creatinine Clearance 88 mL/min (70-130); Calcium 8.3 mg/dL (7.8-10.44); Carbon Dioxide 25 mmol/L (23-31); Chloride 105 mmol/L (98-107); Glucose 95 mg/dL (83-110); Potassium 3.9 mmol/L (3.5-5.1); Sodium 139 mmol/L (136-145)
[2020-09-28] MEDS: Enoxaparin Sodium 80 MG/0.8 ML SYRINGE SC SCH ×2 (07:37→20:50)
[2020-09-28] MEDS: Zinc Sulfate 220 MG CAP PO SCH (07:38)
[2020-09-28] MEDS: Ascorbic Acid 500 mg Chewable Tablet PO SCH (07:38)
[2020-09-28] MEDS: metFORMIN 500 MG TAB PO SCH ×2 (07:38→16:45)
[2020-09-28] MEDS: Cholecalciferol (Vitamin D3) 400 UNITS TAB PO SCH (07:39)
[2020-09-28] MEDS: Tamsulosin HCl 0.4 MG CAP PO SCH ×2 (07:39→20:53)
[2020-09-28] MEDS: Metoprolol Tartrate 25 MG TAB PO SCH ×2 (07:39→20:53)
[2020-09-28] MEDS: Dexamethasone 6 MG in Sodium Chloride 0.9% 50 ML IVPB SCH (10:37)
[2020-09-28] MEDS: Insulin Glargine 35 UNITS in Pre-Filled Syringe 1 EACH SC SCH (10:42)
[2020-09-28] MEDS: Saccharomyces boulardii 250 MG CAP PO SCH (12:20)
[2020-09-28] MEDS: Diabetic Tussin 200 MG/10 ML UDCUP PO PRN (12:20)
--- NOTE | 2020-09-28 15:14 | PDOC.HOSPP ---
- Subjective Encounter Date: 09/28/20 Encounter Time: 08:30 Subjective: Patient seen for follow-up regarding COVID-19 pneumonia. Sleepy but arousable, denies any complaints. - Objective Vital Signs & Weight: Vital Signs (12 hours) Temp Pulse Resp BP BP Pulse Ox 09/28/20 11:17 98.4 F 65 19 101/60 100 09/28/20 07:45 98.4 F 76 18 116/70 100 09/28/20 07:37 100 09/28/20 04:45 100 09/28/20 04:00 98.3 F 56 L 17 123/75 99 Weight Weight 181 lb I&O: 09/27/20 09/28/20 09/29/20 06:59 06:59 06:59 Intake Total 1980 1400 Output Total 1750 1525 Balance 230 -125 Result Diagrams: 09/24/20 11:43 09/28/20 05:01 Additional Labs: Accuchecks 09/28/20 09/27/20 09/27/20 11:17 21:42 16:04 POC Glucose 137 H 166 H 197 H Labs and MAR reviewed by or Hospitalist ROS - Review of Systems Cardiovascular: denies: chest pain, palpitations, orthopnea, paroxysmal noc. dyspnea, edema, light headedness Gastrointestinal: denies: nausea, vomiting, abdominal pain, diarrhea, constipation, melena, hematochezia - Medication Medications: Active Medications Generic Name Dose Route Start Last Admin Trade Name Freq PRN Reason Stop Dose Admin Acetaminophen 650 mg 09/19/20 15:31 09/26/20 21:12 Acetaminophen 325 Mg Tab PO 650 mg Q4H PRN Administration Headache/Fever/Mild Pain (1-3) Albuterol Sulfate 2 puff 09/21/20 00:35 09/27/20 17:38 Albuterol 200 Puff (6.7gm Inhaler) INH 2 puff Q6H PRN Administration SOB &/or Wheezing Ascorbic Acid 1,000 mg 09/22/20 09:00 09/28/20 07:38 Ascorbic Acid 500 Mg Chewable Tablet PO 1,000 mg DAILY STEPHENIE Administration Cholecalciferol 400 units 09/22/20 09:00 09/28/20 07:39 Cholecalciferol (Vitamin D3) 400 Units Tab PO 400 units DAILY STEPHENIE Administration Diltiazem HCl 30 mg 09/20/20 11:30 09/28/20 12:20 Diltiazem Hcl 30 Mg Tablet PO 30 mg ACHS STEPHENIE Administration Enoxaparin Sodium 80 mg 09/21/20 21:00 09/28/20 07:37 Enoxaparin Sodium 80 Mg/0.8 Ml Syringe SC 80 mg 0900,2100 STEPHENIE Administration Famotidine 20 mg 09/21/20 21:00 09/27/20 21:50 Famotidine/Pf 20 Mg/2ml Vial SLOW IVP 20 mg HS STEPHENIE Administration Guaifenesin 200 mg 09/20/20 20:30 09/28/20 12:20 Diabetic Tussin 200 Mg/10 Ml Udcup PO 200 mg Q4H PRN Administration Cough Dexamethasone 6 mg/ Sodium 51.5 mls @ 100 mls/hr 09/20/20 09:00 09/28/20 10:37 Chloride IVPB 51.5 mls DAILY STEPHENIE Administration Insulin Glargine 35 units/ 0.35 mls @ 0 mls/hr 09/27/20 09:00 09/28/20 10:42 Miscellaneous Medication SC Not Given QAM STEPHENIE Insulin Human Lispro 0 units 09/20/20 09:17 09/27/20 17:26 Humalog 300 Units/3 Ml Vial SC 2 unit .MODERATE SLIDING SC PRN Administration Moderate Correctional Scale Insulin Human Lispro 0 units 09/20/20 09:17 09/23/20 21:22 Humalog 300 Units/3 Ml Vial SC 2 unit .BEDTIME SLIDING SC PRN Administration Bedtime Correctional Scale Metformin HCl 1,000 mg 09/24/20 07:42 09/28/20 07:38 Metformin 500 Mg Tab PO 1,000 mg BID-WM STEPHENIE Administration Metoprolol Tartrate 25 mg 09/22/20 09:00 09/28/20 07:39 Metoprolol Tartrate 25 Mg Tab PO 25 mg BID STEPHENIE Administration Saccharomyces Boulardii 250 mg 09/20/20 12:00 09/28/20 12:20 Saccharomyces Boulardii 250 Mg Cap PO 250 mg 1200 STEPHENIE Administration Sodium Chloride 10 ml 09/21/20 21:00 09/28/20 07:38 Flush - Normal Saline 10 Ml Syringe IVF 10 ml Q12HR STEPHENIE Administration Tamsulosin HCl 0.4 mg 09/20/20 21:00 09/28/20 07:39 Tamsulosin Hcl 0.4 Mg Cap PO 0.4 mg BID STEPHENIE Administration Zinc Sulfate 220 mg 09/22/20 09:00 09/28/20 07:38 Zinc Sulfate 220 Mg Cap PO 220 mg DAILY STEPHENIE Administration - Exam General Appearance: awake alert ENT: moist mucosa Heart: no gallops, no rubs Respiratory: CTAB Gastrointestinal: soft Skin: no rashes Psychiatric: normal affect, normal behavior Hosp A/P - Plan Hosp A/P (1) Pneumonia due to COVID-19 virus Code(s): U07.1 - COVID-19; J12.82 - PNEUMONIA DUE TO CORONAVIRUS DISEASE 2019 Status: Acute (2) Diabetes mellitus type 2 in obese Code(s): E11.69 - TYPE 2 DIABETES MELLITUS WITH OTHER SPECIFIED COMPLICATION; E66.9 - OBESITY, UNSPECIFIED Status: Chronic (3) Atrial fibrillation Code(s): I48.91 - UNSPECIFIED ATRIAL FIBRILLATION Status: Acute (4) Sepsis Code(s): A41.9 - SEPSIS, UNSPECIFIED ORGANISM Status: Acute (5) DKA, type 2 Code(s): E11.10 - TYPE 2 DIABETES MELLITUS WITH KETOACIDOSIS WITHOUT COMA Status: Resolved (6) Metabolic encephalopathy Code(s): G93.41 - METABOLIC ENCEPHALOPATHY Status: Resolved - Plan * Patient is on high flow oxygen. * Patient is on dexamethasone. * AFIB-continue therapeutic Lovenox. * DM- blood glucose also have improved. * HTN-controlled and stable.
[2020-09-28] MEDS: HumaLOG 300 UNITS/3 ML VIAL SC PRN ×2 (18:01→20:50)
[2020-09-28] MEDS: Famotidine/PF 20 mg/2ml Vial SLOW IVP SCH (20:55)
[2020-09-29 05:41] LABS: Anion Gap 13 mmol/L (10-20); BUN (Urea Nitrogen) 20 mg/dL (8.4-25.7); Calc. Creatinine Clearance 90 mL/min (70-130); Calcium 8.4 mg/dL (7.8-10.44); Carbon Dioxide 26 mmol/L (23-31); Chloride 105 mmol/L (98-107); Glucose 116 mg/dL (83-110); Potassium 4.2 mmol/L (3.5-5.1); Sodium 140 mmol/L (136-145)
[2020-09-29] MEDS: Tamsulosin HCl 0.4 MG CAP PO SCH ×2 (08:21→22:00)
[2020-09-29] MEDS: Cholecalciferol (Vitamin D3) 400 UNITS TAB PO SCH (08:21)
[2020-09-29] MEDS: Ascorbic Acid 500 mg Chewable Tablet PO SCH (08:21)
[2020-09-29] MEDS: Zinc Sulfate 220 MG CAP PO SCH (08:21)
[2020-09-29] MEDS: Enoxaparin Sodium 80 MG/0.8 ML SYRINGE SC SCH ×2 (08:21→22:00)
[2020-09-29] MEDS: Dexamethasone 4 mg/ml Vial SLOW IVP SCH (08:22)
[2020-09-29] MEDS: metFORMIN 500 MG TAB PO SCH ×2 (08:22→18:15)
[2020-09-29] MEDS: Metoprolol Tartrate 25 MG TAB PO SCH ×2 (08:22→22:00)
[2020-09-29] MEDS: Insulin Glargine 35 UNITS in Pre-Filled Syringe 1 EACH SC SCH (10:20)
[2020-09-29] MEDS: Acetaminophen 325 MG TAB PO PRN (10:21)
[2020-09-29 12:10] VITALS: BMI 29.2
[2020-09-29] MEDS: HumaLOG 300 UNITS/3 ML VIAL SC PRN ×3 (12:56→22:07)
[2020-09-29] MEDS: Saccharomyces boulardii 250 MG CAP PO SCH (12:56)
--- NOTE | 2020-09-29 17:45 | PDOC.HOSPP ---
- Subjective Encounter Date: 09/29/20 Encounter Time: 09:00 Subjective: Seen for follow-up regarding COVID-19 pneumonia. He is now on low-flow oxygen by nasal cannula. Denies chest pain or shortness of breath. - Objective Vital Signs & Weight: Vital Signs (12 hours) Temp Pulse Resp BP Pulse Ox 09/29/20 15:47 97.8 F 62 20 119/67 100 09/29/20 10:45 98 F 61 20 96/53 L 99 09/29/20 09:22 95 09/29/20 08:21 95 09/29/20 07:43 98 F 57 L 18 137/73 96 Weight Admit Weight 186 lb 4.8 oz Weight 181 lb I&O: 09/28/20 09/29/20 09/30/20 06:59 06:59 06:59 Intake Total 1400 1570 Output Total 1525 1500 Balance -125 70 Result Diagrams: 09/24/20 11:43 09/29/20 04:41 Additional Labs: Accuchecks 09/29/20 09/29/20 09/28/20 15:44 10:44 19:34 POC Glucose 276 H 232 H 265 H I reviewed patient's labs and MAR EKG Reviewed by me: Yes (Normal sinus rhythm on telemetry) Hospitalist ROS - Review of Systems Cardiovascular: denies: chest pain, palpitations, orthopnea, paroxysmal noc. dyspnea, edema, light headedness Gastrointestinal: denies: nausea, vomiting, abdominal pain, diarrhea, constipation, melena, hematochezia - Medication Medications: Active Medications Generic Name Dose Route Start Last Admin Trade Name Montyq PRN Reason Stop Dose Admin Acetaminophen 650 mg 09/19/20 15:31 09/29/20 10:21 Acetaminophen 325 Mg Tab PO 650 mg Q4H PRN Administration Headache/Fever/Mild Pain (1-3) Albuterol Sulfate 2 puff 09/21/20 00:35 09/27/20 17:38 Albuterol 200 Puff (6.7gm Inhaler) INH 2 puff Q6H PRN Administration SOB &/or Wheezing Ascorbic Acid 1,000 mg 09/22/20 09:00 09/29/20 08:21 Ascorbic Acid 500 Mg Chewable Tablet PO 1,000 mg DAILY STEPHENIE Administration Cholecalciferol 400 units 09/22/20 09:00 09/29/20 08:21 Cholecalciferol (Vitamin D3) 400 Units Tab PO 400 units DAILY STEPHENIE Administration Dexamethasone 6 mg 09/29/20 09:00 09/29/20 08:22 Dexamethasone 4 Mg/Ml Vial SLOW IVP 6 mg DAILY STEPHENIE Administration Diltiazem HCl 30 mg 09/20/20 11:30 09/29/20 12:56 Diltiazem Hcl 30 Mg Tablet PO 30 mg ACHS STEPHENIE Administration Enoxaparin Sodium 80 mg 09/21/20 21:00 09/29/20 08:21 Enoxaparin Sodium 80 Mg/0.8 Ml Syringe SC 80 mg 0900,2100 STEPHENIE Administration Famotidine 20 mg 09/21/20 21:00 09/28/20 20:55 Famotidine/Pf 20 Mg/2ml Vial SLOW IVP 20 mg HS STEPHENIE Administration Guaifenesin 200 mg 09/20/20 20:30 09/28/20 12:20 Diabetic Tussin 200 Mg/10 Ml Udcup PO 200 mg Q4H PRN Administration Cough Insulin Glargine 35 units/ 0.35 mls @ 0 mls/hr 09/27/20 09:00 09/29/20 10:20 Miscellaneous Medication SC 0.35 mls QAM STEPHENIE Administration Insulin Human Lispro 0 units 09/20/20 09:17 09/29/20 12:56 Humalog 300 Units/3 Ml Vial SC 4 unit .MODERATE SLIDING SC PRN Administration Moderate Correctional Scale Insulin Human Lispro 0 units 09/20/20 09:17 09/28/20 20:50 Humalog 300 Units/3 Ml Vial SC 3 unit .BEDTIME SLIDING SC PRN Administration Bedtime Correctional Scale Metformin HCl 1,000 mg 09/24/20 07:42 09/29/20 08:22 Metformin 500 Mg Tab PO 1,000 mg BID-WM STEPHENIE Administration Metoprolol Tartrate 25 mg 09/22/20 09:00 09/29/20 08:22 Metoprolol Tartrate 25 Mg Tab PO 25 mg BID STEPHENIE Administration Saccharomyces Boulardii 250 mg 09/20/20 12:00 09/29/20 12:56 Saccharomyces Boulardii 250 Mg Cap PO 250 mg 1200 STEPHENIE Administration Sodium Chloride 10 ml 09/21/20 21:00 09/29/20 08:21 Flush - Normal Saline 10 Ml Syringe IVF 10 ml Q12HR STEPHENIE Administration Tamsulosin HCl 0.4 mg 09/20/20 21:00 09/29/20 08:21 Tamsulosin Hcl 0.4 Mg Cap PO 0.4 mg BID STEPHENIE Administration Zinc Sulfate 220 mg 09/22/20 09:00 09/29/20 08:21 Zinc Sulfate 220 Mg Cap PO 220 mg DAILY STEPHENIE Administration - Exam General Appearance: awake alert Eye: anicteric sclera ENT: normocephalic atraumatic Neck: supple Heart: RRR Respiratory: CTAB Gastrointestinal: soft Skin: no rashes Psychiatric: normal affect, normal behavior Hosp A/P - Plan Hosp A/P (1) Pneumonia due to COVID-19 virus Code(s): U07.1 - COVID-19; J12.82 - PNEUMONIA DUE TO CORONAVIRUS DISEASE 2019 Status: Acute (2) Diabetes mellitus type 2 in obese Code(s): E11.69 - TYPE 2 DIABETES MELLITUS WITH OTHER SPECIFIED COMPLICATION; E66.9 - OBESITY, UNSPECIFIED Status: Chronic (3) Atrial fibrillation Code(s): I48.91 - UNSPECIFIED ATRIAL FIBRILLATION Status: Acute (4) Sepsis Code(s): A41.9 - SEPSIS, UNSPECIFIED ORGANISM Status: Acute (5) DKA, type 2 Code(s): E11.10 - TYPE 2 DIABETES MELLITUS WITH KETOACIDOSIS WITHOUT COMA Status: Resolved (6) Metabolic encephalopathy Code(s): G93.41 - METABOLIC ENCEPHALOPATHY Status: Resolved - Plan * Patient clinically improving, transition to low flow oxygen. * ambulate patient * Continue dexamethasone. * AFIB-continue therapeutic Lovenox. * DM- blood glucose also have improved. * HTN-controlled and stable
[2020-09-29] MEDS: Famotidine/PF 20 mg/2ml Vial SLOW IVP SCH (22:00)
[2020-09-30 06:02] LABS: Anion Gap 13 mmol/L (10-20); BUN (Urea Nitrogen) 24 mg/dL (8.4-25.7); Calc. Creatinine Clearance 89 mL/min (70-130); Calcium 8.6 mg/dL (7.8-10.44); Carbon Dioxide 26 mmol/L (23-31); Chloride 105 mmol/L (98-107); Glucose 205 mg/dL (83-110); Potassium 4.1 mmol/L (3.5-5.1); Sodium 140 mmol/L (136-145)
[2020-09-30] MEDS: HumaLOG 300 UNITS/3 ML VIAL SC PRN ×4 (06:13→21:21)
[2020-09-30] MEDS: Acetaminophen 325 MG TAB PO PRN (06:29)
[2020-09-30] MEDS: Insulin Glargine 35 UNITS in Pre-Filled Syringe 1 EACH SC SCH (08:52)
[2020-09-30] MEDS: Enoxaparin Sodium 80 MG/0.8 ML SYRINGE SC SCH ×2 (08:54→21:13)
[2020-09-30] MEDS: Zinc Sulfate 220 MG CAP PO SCH (08:55)
[2020-09-30] MEDS: metFORMIN 500 MG TAB PO SCH ×2 (08:55→17:25)
[2020-09-30] MEDS: Tamsulosin HCl 0.4 MG CAP PO SCH ×2 (08:55→21:14)
[2020-09-30] MEDS: Ascorbic Acid 500 mg Chewable Tablet PO SCH (08:55)
[2020-09-30] MEDS: Cholecalciferol (Vitamin D3) 400 UNITS TAB PO SCH (08:55)
[2020-09-30] MEDS: Metoprolol Tartrate 25 MG TAB PO SCH ×2 (08:55→21:14)
[2020-09-30] MEDS: Dexamethasone 4 mg/ml Vial SLOW IVP SCH (08:56)
[2020-09-30] MEDS: Saccharomyces boulardii 250 MG CAP PO SCH (12:38)
[2020-09-30] MEDS: Famotidine/PF 20 mg/2ml Vial SLOW IVP SCH (21:13)
[2020-10-01 05:50] LABS: Anion Gap 12 mmol/L (10-20); BUN (Urea Nitrogen) 18 mg/dL (8.4-25.7); Calc. Creatinine Clearance 90 mL/min (70-130); Calcium 8.5 mg/dL (7.8-10.44); Carbon Dioxide 26 mmol/L (23-31); Chloride 105 mmol/L (98-107); Glucose 154 mg/dL (83-110); Sodium 139 mmol/L (136-145)
[2020-10-01] MEDS: Enoxaparin Sodium 80 MG/0.8 ML SYRINGE SC SCH (08:53)
[2020-10-01] MEDS: Famotidine/PF 20 mg/2ml Vial SLOW IVP SCH ×2 (08:54→21:04)
[2020-10-01] MEDS: Zinc Sulfate 220 MG CAP PO SCH (08:54)
[2020-10-01] MEDS: Dexamethasone 4 mg/ml Vial SLOW IVP SCH (08:54)
[2020-10-01] MEDS: metFORMIN 500 MG TAB PO SCH ×2 (08:55→17:03)
[2020-10-01] MEDS: Ascorbic Acid 500 mg Chewable Tablet PO SCH (08:55)
[2020-10-01] MEDS: Metoprolol Tartrate 25 MG TAB PO SCH ×2 (08:55→21:07)
[2020-10-01] MEDS: Tamsulosin HCl 0.4 MG CAP PO SCH ×2 (08:56→21:07)
[2020-10-01] MEDS: Cholecalciferol (Vitamin D3) 400 UNITS TAB PO SCH (08:56)
[2020-10-01] MEDS: Acetaminophen 325 MG TAB PO PRN (09:16)
[2020-10-01] MEDS: Saccharomyces boulardii 250 MG CAP PO SCH (11:41)
[2020-10-01] MEDS: Insulin Glargine 35 UNITS in Pre-Filled Syringe 1 EACH SC SCH (12:38)
[2020-10-01] MEDS: HumaLOG 300 UNITS/3 ML VIAL SC PRN ×3 (14:30→21:01)
--- NOTE | 2020-10-01 15:58 | PDOC.DS.DS ---
Provider - Provider Date of Admission: 09/19/20 11:49 Date of Discharge: 10/01/20 Admitting Provider: Rico Pickens MD Primary Care Physician: Renny Malagon MD Course - Hospital Course Hospital Course: Discharge diagnosis: 1. Sepsis 2. Sepsis secondary to COVID-19 pneumonia 3. Acute hypoxic respiratory failure 4. Atrial fibrillation with rapid ventricular response 5. Acute metabolic encephalopathy 6. Diabetic ketoacidosis 7. Acute kidney injury 8. Hyperkalemia 9. Hypernatremia Hospital course: Patient is a pleasant 75-year-old gentleman who was admitted to the hospital on September 19, 2020 for sepsis secondary to Covid pneumonia. He was also a diabetic ketoacidosis and had atrial fibrillation with rapid ventricular response. He also had acute kidney injury. He was also confused. He received intravenous fluids, intravenous antibiotics and insulin. Diabetic ketoacidosis resolved. He was also treated with Cardizem drip for A. fib with RVR, subsequently transitioned to oral Cardizem. He received dexamethasone. Acute kidney injury resolved. On September 24 he was more lethargic and difficult to arouse. Stroke code was called. Noncontrast CT scan of the brain did not show any acute intracranial abnormality. He had a small scalp hematoma in the right parietal region. CT angiogram showed chronic high-grade stenosis due to heavily calcified plaque right supraclinoid internal carotid and moderate stenosis at origin of left internal carotid. In terms of COVID-19 pneumonia, patient will require high flow oxygen. He was slow to improve but eventually was transitioned to oxygen by nasal cannula, subsequently to room air. He is being discharged home in a stable condition with home health for usp and physical therapy. He was treated with Lovenox and Cardizem for A. fib with RVR, being transitioned to apixaban at the time of discharge for anticoagulation. He is advised to follow-up with CV surgery and cardiology as outpatient, referrals to be made through primary care provider's office. He is being discharged home and will receive physical therapy as outpatient. Many thanks for allowing me to participate in your patient's care. Please feel free to contact me with any questions or concerns. Discharge destination: Home Total amount of time spent coordinating this discharge: 25 minutes Resuscitation Status: 09/19/20 12:09 Resuscitation Status Routine Resuscitation Status: FULL: Full Resuscitation - Labs Lab Results: 09/24/20 11:43 10/01/20 05:17 Microbiology - Entire Visit 09/19/20 09:13 Venous blood - Right Arm Blood Culture - Final NO GROWTH IN 5 DAYS 09/19/20 09:13 Venous blood - Left Arm Blood Culture - Final NO GROWTH IN 5 DAYS 09/19/20 10:37 Urine voided Urine Culture - Final Presumptive Fallon albicans - Physical Exam Vitals: Vital Signs (12 hours) Temp Pulse Resp BP BP Pulse Ox 10/01/20 11:31 98.0 F 72 120/72 97 10/01/20 08:00 97.7 F 61 18 139/78 93 L Weight Admit Weight 186 lb 4.8 oz Weight 181 lb Physical Exam: The patient was seen and examined on the day of discharge. Patient denies chest pain or shortness of breath. Vital signs are stable. S1 and S2 are heard. Lungs are clear to auscultation bilaterally. Plan - Discharge Medications Prescriptions: Diltiazem CD [Cardizem CD] 120 mg PO DAILY #30 cap Apixaban [Eliquis] 5 mg PO BID #60 tablet Albuterol Sulfate [Proventil Hfa] 2 puff INH Q6H PRN #1 aer PRN Reason: Sob &/Or Wheezing Ascorbic Acid [Vitamin C] 1,000 mg PO DAILY #7 tablet Zinc Sulfate [Zinc-220] 220 mg PO DAILY #7 capsule Home Medications: Medication Instructions Recorded Confirmed Type Tamsulosin HCl [Flomax] 0.4 mg PO BID 01/17/14 09/20/20 History Metoprolol Tartrate 25 mg PO BID 09/20/20 09/20/20 History metFORMIN HCl [Metformin HCl] 1,000 mg PO BID 09/20/20 09/20/20 History Albuterol Sulfate [Proventil Hfa] 2 puff INH Q6H PRN #1 aer 10/01/20 Rx Apixaban [Eliquis] 5 mg PO BID #60 tablet 10/01/20 Rx Ascorbic Acid [Vitamin C] 1,000 mg PO DAILY #7 tablet 10/01/20 Rx Diltiazem CD [Cardizem CD] 120 mg PO DAILY #30 cap 10/01/20 Rx Zinc Sulfate [Zinc-220] 220 mg PO DAILY #7 capsule 10/01/20 Rx Allergies: lisinopril Allergy (Verified 09/20/20 17:05) - Discharge Instructions Discharge Instructions:: Check your blood pressure and heart rate 3 times a day and shows readings to your primary care provider. Seek referral through primary care provider's office for cardiovascular surgery for carotid stenosis and cardiology for atrial fibrillation. Get a pulse oximeter and check your oxygen levels 3 times a day and whenever you have shortness of breath. If his oxygen reading is below 90%, seek medical attention. - Follow up Plan Referrals: [facility], Vinicio [Other] Renny Malagon MD [Primary Care Provider] - 3 Days Disposition: HOME Quality - Care Measures CORE MEASURES:: N/A
--- NOTE | 2020-10-01 18:47 | PDOC.HOSPP ---
- Subjective Encounter Date: 09/30/20 Encounter Time: 19:00 Subjective: Patient seen for follow-up regarding COVID-19 pneumonia. No complaints. - Objective Vital Signs & Weight: Vital Signs (12 hours) Temp Pulse Resp BP BP BP Pulse Ox 10/01/20 17:22 98.3 F 60 12 116/59 L 100 10/01/20 11:31 98.0 F 72 120/72 97 10/01/20 08:00 97.7 F 61 18 139/78 93 L Weight Admit Weight 186 lb 4.8 oz Weight 181 lb I&O: 09/30/20 10/01/20 10/02/20 06:59 06:59 06:59 Intake Total 940 1750 720 Output Total 1000 900 975 Balance -60 850 -255 Result Diagrams: 09/24/20 11:43 10/01/20 05:17 Additional Labs: Accuchecks 10/01/20 10/01/20 10/01/20 16:45 10:44 05:26 POC Glucose 258 H 225 H 147 H 09/30/20 20:28 POC Glucose 204 H Labs and MAR reviewed by nc Hospitalist ROS - Review of Systems Cardiovascular: denies: chest pain, palpitations, orthopnea, paroxysmal noc. dyspnea, edema, light headedness Gastrointestinal: denies: nausea, vomiting, abdominal pain, diarrhea, constipation, melena, hematochezia - Medication Medications: Active Medications Generic Name Dose Route Start Last Admin Trade Name Freq PRN Reason Stop Dose Admin Acetaminophen 650 mg 09/19/20 15:31 10/01/20 09:16 Acetaminophen 325 Mg Tab PO 650 mg Q4H PRN Administration Headache/Fever/Mild Pain (1-3) Albuterol Sulfate 2 puff 09/21/20 00:35 09/27/20 17:38 Albuterol 200 Puff (6.7gm Inhaler) INH 2 puff Q6H PRN Administration SOB &/or Wheezing Ascorbic Acid 1,000 mg 09/22/20 09:00 10/01/20 08:55 Ascorbic Acid 500 Mg Chewable Tablet PO 1,000 mg DAILY STEPHENIE Administration Cholecalciferol 400 units 09/22/20 09:00 10/01/20 08:56 Cholecalciferol (Vitamin D3) 400 Units Tab PO 400 units DAILY STEPHENIE Administration Dexamethasone 6 mg 09/29/20 09:00 10/01/20 08:54 Dexamethasone 4 Mg/Ml Vial SLOW IVP 6 mg DAILY STEPHENIE Administration Diltiazem HCl 30 mg 10/01/20 17:00 10/01/20 17:03 Diltiazem Hcl 30 Mg Tablet PO 30 mg ACHS STEPHENIE Administration Enoxaparin Sodium 80 mg 09/21/20 21:00 10/01/20 08:53 Enoxaparin Sodium 80 Mg/0.8 Ml Syringe SC 80 mg 0900,2100 STEPHENIE Administration Famotidine 20 mg 09/30/20 21:00 10/01/20 08:54 Famotidine/Pf 20 Mg/2ml Vial SLOW IVP 20 mg Q12HR STEPHENIE Administration Guaifenesin 200 mg 09/20/20 20:30 09/28/20 12:20 Diabetic Tussin 200 Mg/10 Ml Udcup PO 200 mg Q4H PRN Administration Cough Insulin Glargine 35 units/ 0.35 mls @ 0 mls/hr 09/27/20 09:00 10/01/20 12:38 Miscellaneous Medication SC 0.35 mls QAM STEPHENIE Administration Insulin Human Lispro 0 units 09/20/20 09:17 10/01/20 14:30 Humalog 300 Units/3 Ml Vial SC 4 unit .MODERATE SLIDING SC PRN Administration Moderate Correctional Scale Insulin Human Lispro 0 units 09/20/20 09:17 09/30/20 21:21 Humalog 300 Units/3 Ml Vial SC 2 unit .BEDTIME SLIDING SC PRN Administration Bedtime Correctional Scale Metformin HCl 1,000 mg 09/24/20 07:42 10/01/20 17:03 Metformin 500 Mg Tab PO 1,000 mg BID-WM STEPHENIE Administration Metoprolol Tartrate 25 mg 09/22/20 09:00 10/01/20 08:55 Metoprolol Tartrate 25 Mg Tab PO 25 mg BID STEPHENIE Administration Saccharomyces Boulardii 250 mg 09/20/20 12:00 10/01/20 11:41 Saccharomyces Boulardii 250 Mg Cap PO 250 mg 1200 STEPHENIE Administration Sodium Chloride 10 ml 09/21/20 21:00 10/01/20 09:01 Flush - Normal Saline 10 Ml Syringe IVF 10 ml Q12HR STEPHENIE Administration Tamsulosin HCl 0.4 mg 09/20/20 21:00 10/01/20 08:56 Tamsulosin Hcl 0.4 Mg Cap PO 0.4 mg BID STEPHENIE Administration Zinc Sulfate 220 mg 09/22/20 09:00 10/01/20 08:54 Zinc Sulfate 220 Mg Cap PO 220 mg DAILY STEPHENIE Administration - Exam General Appearance: awake alert Eye: anicteric sclera ENT: normocephalic atraumatic Neck: supple Heart: RRR Respiratory: rhonchi Gastrointestinal: soft Skin: no rashes Psychiatric: normal affect Hosp A/P - Plan Hosp A/P (1) Pneumonia due to COVID-19 virus Code(s): U07.1 - COVID-19; J12.82 - PNEUMONIA DUE TO CORONAVIRUS DISEASE 2019 Status: Acute (2) Diabetes mellitus type 2 in obese Code(s): E11.69 - TYPE 2 DIABETES MELLITUS WITH OTHER SPECIFIED COMPLICATION; E66.9 - OBESITY, UNSPECIFIED Status: Chronic (3) Atrial fibrillation Code(s): I48.91 - UNSPECIFIED ATRIAL FIBRILLATION Status: Acute (4) Sepsis Code(s): A41.9 - SEPSIS, UNSPECIFIED ORGANISM Status: Acute (5) DKA, type 2 Code(s): E11.10 - TYPE 2 DIABETES MELLITUS WITH KETOACIDOSIS WITHOUT COMA Status: Resolved (6) Metabolic encephalopathy Code(s): G93.41 - METABOLIC ENCEPHALOPATHY Status: Resolved - Plan * Patient clinically improving, now on low flow oxygen. * ambulate patient * Continue dexamethasone. * AFIB-continue therapeutic Lovenox. * DM- blood glucose also have improved. * HTN-controlled and stable
--- NOTE | 2020-10-01 18:50 | PDOC.HOSPP ---
- Subjective Encounter Date: 10/01/20 Encounter Time: 18:49 Subjective: Patient seen for follow-up of COVID-19 pneumonia. No complaints. - Objective Vital Signs & Weight: Vital Signs (12 hours) Temp Pulse Resp BP BP BP Pulse Ox 10/01/20 17:22 98.3 F 60 12 116/59 L 100 10/01/20 11:31 98.0 F 72 120/72 97 10/01/20 08:00 97.7 F 61 18 139/78 93 L Weight Admit Weight 186 lb 4.8 oz Weight 181 lb I&O: 09/30/20 10/01/20 10/02/20 06:59 06:59 06:59 Intake Total 940 1750 720 Output Total 1000 900 975 Balance -60 850 -255 Result Diagrams: 09/24/20 11:43 10/01/20 05:17 Additional Labs: Accuchecks 10/01/20 10/01/20 10/01/20 16:45 10:44 05:26 POC Glucose 258 H 225 H 147 H 09/30/20 20:28 POC Glucose 204 H Hospitalist ROS - Review of Systems Gastrointestinal: denies: nausea, vomiting, abdominal pain, diarrhea, con stipation, melena, hematochezia Genitourinary: denies: dysuria, frequency, incontinence, hematuria, retention - Medication Medications: Active Medications Generic Name Dose Route Start Last Admin Trade Name Freq PRN Reason Stop Dose Admin Acetaminophen 650 mg 09/19/20 15:31 10/01/20 09:16 Acetaminophen 325 Mg Tab PO 650 mg Q4H PRN Administration Headache/Fever/Mild Pain (1-3) Albuterol Sulfate 2 puff 09/21/20 00:35 09/27/20 17:38 Albuterol 200 Puff (6.7gm Inhaler) INH 2 puff Q6H PRN Administration SOB &/or Wheezing Ascorbic Acid 1,000 mg 09/22/20 09:00 10/01/20 08:55 Ascorbic Acid 500 Mg Chewable Tablet PO 1,000 mg DAILY STEPHENIE Administration Cholecalciferol 400 units 09/22/20 09:00 10/01/20 08:56 Cholecalciferol (Vitamin D3) 400 Units Tab PO 400 units DAILY STEPHENIE Administration Dexamethasone 6 mg 09/29/20 09:00 10/01/20 08:54 Dexamethasone 4 Mg/Ml Vial SLOW IVP 6 mg DAILY STEPHENIE Administration Diltiazem HCl 30 mg 10/01/20 17:00 10/01/20 17:03 Diltiazem Hcl 30 Mg Tablet PO 30 mg ACHS STEPHENIE Administration Enoxaparin Sodium 80 mg 09/21/20 21:00 10/01/20 08:53 Enoxaparin Sodium 80 Mg/0.8 Ml Syringe SC 80 mg 0900,2100 STEPHENIE Administration Famotidine 20 mg 09/30/20 21:00 10/01/20 08:54 Famotidine/Pf 20 Mg/2ml Vial SLOW IVP 20 mg Q12HR STEPHENIE Administration Guaifenesin 200 mg 09/20/20 20:30 09/28/20 12:20 Diabetic Tussin 200 Mg/10 Ml Udcup PO 200 mg Q4H PRN Administration Cough Insulin Glargine 35 units/ 0.35 mls @ 0 mls/hr 09/27/20 09:00 10/01/20 12:38 Miscellaneous Medication SC 0.35 mls QAM STEPHENIE Administration Insulin Human Lispro 0 units 09/20/20 09:17 10/01/20 14:30 Humalog 300 Units/3 Ml Vial SC 4 unit .MODERATE SLIDING SC PRN Administration Moderate Correctional Scale Insulin Human Lispro 0 units 09/20/20 09:17 09/30/20 21:21 Humalog 300 Units/3 Ml Vial SC 2 unit .BEDTIME SLIDING SC PRN Administration Bedtime Correctional Scale Metformin HCl 1,000 mg 09/24/20 07:42 10/01/20 17:03 Metformin 500 Mg Tab PO 1,000 mg BID-WM STEPHENIE Administration Metoprolol Tartrate 25 mg 09/22/20 09:00 10/01/20 08:55 Metoprolol Tartrate 25 Mg Tab PO 25 mg BID STEPHENIE Administration Saccharomyces Boulardii 250 mg 09/20/20 12:00 10/01/20 11:41 Saccharomyces Boulardii 250 Mg Cap PO 250 mg 1200 STEPHENIE Administration Sodium Chloride 10 ml 09/21/20 21:00 10/01/20 09:01 Flush - Normal Saline 10 Ml Syringe IVF 10 ml Q12HR STEPHENIE Administration Tamsulosin HCl 0.4 mg 09/20/20 21:00 10/01/20 08:56 Tamsulosin Hcl 0.4 Mg Cap PO 0.4 mg BID STEPHENIE Administration Zinc Sulfate 220 mg 09/22/20 09:00 10/01/20 08:54 Zinc Sulfate 220 Mg Cap PO 220 mg DAILY STEPHENIE Administration - Exam General Appearance: awake alert Neck: supple Heart: RRR Respiratory: CTAB Gastrointestinal: soft, non-tender Extremities: no edema Skin: no rashes Musculoskeletal: no muscle wasting Psychiatric: normal affect Hosp A/P - Plan Hosp A/P (1) Pneumonia due to COVID-19 virus Code(s): U07.1 - COVID-19; J12.82 - PNEUMONIA DUE TO CORONAVIRUS DISEASE 2018 Status: Acute (2) Diabetes mellitus type 2 in obese Code(s): E11.69 - TYPE 2 DIABETES MELLITUS WITH OTHER SPECIFIED COMPLICATION; E66.9 - OBESITY, UNSPECIFIED Status: Chronic (3) Atrial fibrillation Code(s): I48.91 - UNSPECIFIED ATRIAL FIBRILLATION Status: Acute (4) Sepsis Code(s): A41.9 - SEPSIS, UNSPECIFIED ORGANISM Status: Acute (5) DKA, type 2 Code(s): E11.10 - TYPE 2 DIABETES MELLITUS WITH KETOACIDOSIS WITHOUT COMA Status: Resolved (6) Metabolic encephalopathy Code(s): G93.41 - METABOLIC ENCEPHALOPATHY Status: Resolved - Plan * Patient clinically improved, now on room air * ambulate patient * Continue dexamethasone. * AFIB-transition to apixaban * DM- blood glucose also have improved. * HTN-controlled and stable * Discharge to home with home health.
[2020-10-01] MEDS: Apixaban 5 MG TAB PO SCH (21:07)
[2020-10-02 05:10] LABS: Anion Gap 15 mmol/L (10-20); BUN (Urea Nitrogen) 21 mg/dL (8.4-25.7); Calc. Creatinine Clearance 81 mL/min (70-130); Calcium 8.8 mg/dL (7.8-10.44); Carbon Dioxide 23 mmol/L (23-31); Chloride 104 mmol/L (98-107); Glucose 144 mg/dL (83-110); Potassium 4.1 mmol/L (3.5-5.1); Sodium 138 mmol/L (136-145)
[2020-10-02] MEDS: Tamsulosin HCl 0.4 MG CAP PO SCH (08:07)
[2020-10-02] MEDS: metFORMIN 500 MG TAB PO SCH (08:07)
[2020-10-02] MEDS: Ascorbic Acid 500 mg Chewable Tablet PO SCH (08:07)
[2020-10-02] MEDS: Cholecalciferol (Vitamin D3) 400 UNITS TAB PO SCH (08:07)
[2020-10-02] MEDS: Zinc Sulfate 220 MG CAP PO SCH (08:08)
[2020-10-02] MEDS: Metoprolol Tartrate 25 MG TAB PO SCH (08:08)
[2020-10-02] MEDS: Famotidine/PF 20 mg/2ml Vial SLOW IVP SCH (08:08)
[2020-10-02] MEDS: Apixaban 5 MG TAB PO SCH (08:08)
[2020-10-02] MEDS ORDERED: Insulin Glargine 10 UNITS in Pre-Filled Syringe SC SCH (09:00)
[2020-10-02] MEDS ORDERED: Insulin Glargine 20 UNITS in Pre-Filled Syringe 1 EACH SC SCH (09:00)
[2020-10-02] MEDS: HumaLOG 300 UNITS/3 ML VIAL SC PRN (10:43)
[2020-10-02] MEDS: Saccharomyces boulardii 250 MG CAP PO SCH (10:43)
--- NOTE | 2020-10-02 11:59 | PDOC.DS.DS ---
Provider - Provider Date of Admission: 09/19/20 11:49 Date of Discharge: 10/02/20 Admitting Provider: Rico Pickens MD Primary Care Physician: Renny Malagon MD Course - Hospital Course Hospital Course: Discharge diagnosis: 1. Sepsis 2. Sepsis secondary to COVID-19 pneumonia 3. Acute hypoxic respiratory failure 4. Atrial fibrillation with rapid ventricular response 5. Acute metabolic encephalopathy 6. Diabetic ketoacidosis 7. Acute kidney injury 8. Hyperkalemia 9. Hypernatremia Hospital course: Patient is a pleasant 75-year-old gentleman who was admitted to the hospital on September 19, 2020 for sepsis secondary to Covid pneumonia. He was also a diabetic ketoacidosis and had atrial fibrillation with rapid ventricular response. He also had acute kidney injury. He was also confused. He received intravenous fluids, intravenous antibiotics and insulin. Diabetic ketoacidosis resolved. He was also treated with Cardizem drip for A. fib with RVR, subsequently transitioned to oral Cardizem. He received dexamethasone. Acute kidney injury resolved. On September 24 he was more lethargic and difficult to arouse. Stroke code was called. Noncontrast CT scan of the brain did not show any acute intracranial abnormality. He had a small scalp hematoma in the right parietal region. CT angiogram showed chronic high-grade stenosis due to heavily calcified plaque right supraclinoid internal carotid and moderate stenosis at origin of left internal carotid. In terms of COVID-19 pneumonia, patient will require high flow oxygen. He was slow to improve but eventually was transitioned to oxygen by nasal cannula, subsequently to room air. He is being discharged home in a stable condition with home health for shelter and physical therapy. He was treated with Lovenox and Cardizem for A. fib with RVR, being transitioned to apixaban at the time of discharge for anticoagulation. He is advised to follow-up with CV surgery and cardiology as outpatient, referrals to be made through primary care provider's office. He is being discharged home and will receive physical therapy as outpatient. Many thanks for allowing me to participate in your patient's care. Please feel free to contact me with any questions or concerns. Discharge destination: Home Total amount of time spent coordinating this discharge: 25 minutes Resuscitation Status: 09/19/20 12:09 Resuscitation Status Routine Resuscitation Status: FULL: Full Resuscitation - Labs Lab Results: 09/24/20 11:43 10/02/20 04:41 Microbiology - Entire Visit 09/19/20 09:13 Venous blood - Right Arm Blood Culture - Final NO GROWTH IN 5 DAYS 09/19/20 09:13 Venous blood - Left Arm Blood Culture - Final NO GROWTH IN 5 DAYS 09/19/20 10:37 Urine voided Urine Culture - Final Presumptive Fallon albicans - Physical Exam Vitals: Vital Signs (12 hours) Temp Pulse Resp BP BP Pulse Ox 10/02/20 07:53 98 F 52 L 18 131/69 100 10/02/20 03:40 98.1 F 55 L 14 118/70 100 Weight Admit Weight 186 lb 4.8 oz Weight 181 lb Physical Exam: The patient was seen and examined on the day of discharge. Patient denies chest pain or shortness of breath. Vital signs are stable. S1 and S2 are heard. Lungs are clear to auscultation bilaterally. Plan - Discharge Medications Prescriptions: Diltiazem CD [Cardizem CD] 120 mg PO DAILY #30 cap Apixaban [Eliquis] 5 mg PO BID #60 tablet Albuterol Sulfate [Proventil Hfa] 2 puff INH Q6H PRN #1 aer PRN Reason: Sob &/Or Wheezing Ascorbic Acid [Vitamin C] 1,000 mg PO DAILY #7 tablet Zinc Sulfate [Zinc-220] 220 mg PO DAILY #7 capsule Home Medications: Medication Instructions Recorded Confirmed Type Tamsulosin HCl [Flomax] 0.4 mg PO BID 01/17/14 09/20/20 History Metoprolol Tartrate 25 mg PO BID 09/20/20 09/20/20 History metFORMIN HCl [Metformin HCl] 1,000 mg PO BID 09/20/20 09/20/20 History Albuterol Sulfate [Proventil Hfa] 2 puff INH Q6H PRN #1 aer 10/01/20 Rx Apixaban [Eliquis] 5 mg PO BID #60 tablet 10/01/20 Rx Ascorbic Acid [Vitamin C] 1,000 mg PO DAILY #7 tablet 10/01/20 Rx Diltiazem CD [Cardizem CD] 120 mg PO DAILY #30 cap 10/01/20 Rx Zinc Sulfate [Zinc-220] 220 mg PO DAILY #7 capsule 10/01/20 Rx Allergies: lisinopril Allergy (Verified 09/20/20 17:05) - Discharge Instructions Discharge Instructions:: Check your blood pressure and heart rate 3 times a day and shows readings to your primary care provider. Seek referral through primary care provider's office for cardiovascular surgery for carotid stenosis and cardiology for atrial fibrillation. Get a pulse oximeter and check your oxygen levels 3 times a day and whenever you have shortness of breath. If his oxygen reading is below 90%, seek medical attention. - Follow up Plan Referrals: [facility], Vinicio [Other] Renny Malagon MD [Primary Care Provider] - 3 Days Disposition: HOME Quality - Care Measures CORE MEASURES:: N/A
[2020-10-02 12:44] VITALS: BP 101/70; TEMP 97.7
--- NOTE | 2020-10-03 15:11 | EKG ---
Test Reason : Blood Pressure : / mmHG Vent. Rate : 132 BPM Atrial Rate : 147 BPM P-R Int : 000 ms QRS Dur : 080 ms QT Int : 326 ms P-R-T Axes : 000 -02 041 degrees QTc Int : 483 ms Atrial fibrillation with rapid ventricular response Possible Inferior infarct , age undetermined Possible Anterior infarct , age undetermined Abnormal ECG Confirmed by WILBUR PRINGLE ([id number]), city editor DOC LUZ ([id number]) on 10/03/2020 3:10:33 PM Referred By: Confirmed By:WILBUR Mariano
== END 2020-10-02 14:30 | disposition home or self-care (01) | DRG 871 ==
LOC: ERS 08:45 → ERHOLD 11:49 → 2SW 09-20 16:56
PROVIDERS: ADMIT Internal Medicine; ATTEND Internal Medicine
DX: A41.89 Other specified sepsis (principal); E11.10 Type 2 diabetes mellitus with ketoacidosis without coma; U07.1 COVID-19; J12.82 Pneumonia due to coronavirus disease 2019; G93.41 Metabolic encephalopathy; J96.01 Acute respiratory failure with hypoxia; N17.9 Acute kidney failure, unspecified; E87.0 Hyperosmolality and hypernatremia; I10 Essential (primary) hypertension; N40.0 Benign prostatic hyperplasia without lower urinary tract symptoms; M19.90 Unspecified osteoarthritis, unspecified site; I48.91 Unspecified atrial fibrillation; E66.9 Obesity, unspecified; E87.5 Hyperkalemia; I65.23 Occlusion and stenosis of bilateral carotid arteries; Z87.442 Personal history of urinary calculi; Z86.73 Personal history of transient ischemic attack (TIA), and cerebral infarction without residual deficits; Z90.49 Acquired absence of other specified parts of digestive tract; Z79.899 Other long term (current) drug therapy; Z68.29 Body mass index [BMI] 29.0-29.9, adult
CPT/HCPCS: 0240U; 36415; 36416; 36600; 70450; 70496; 70498; 71045; 80048; 80053; 80202; 81003; 81015; 82010; 82550; 82553; 82728; 82805; 83605; 83735; 83930; 84100; 84484; 85014; 85018; 85025; 85049; 85379; 85610; 85730; 86140; 87040; 87086; 87635; 93005; 93010; 94760; J0692; J1100; J1642; J1644; J1650; J1815; J3370; J3480; J3490; Q9967; S0028; U0003

== ENCOUNTER 2022-07-08 12:36 | Inpatient (IN) | payer MEDICARE ==
[~2022-07-08 12:36] MED LIST: Iopamidol-370 76% 500 ML 1 ML ONE
[2022-07-08 13:31] LABS: #Eosinphils 0.2 thou/uL (0.0-0.7); #Lymphocytes 1.7 thou/uL (1.20-3.40); #Monocytes 0.5 thou/uL (0.11-0.59); #Neutrophils 4.7 thou/uL (1.40-6.50); %Basophils 0.7 % (0.0-1.0); %Eosinophils 2.9 % (0.0-10.0); %Lymphocytes 23.8 % (21.0-51.0); %Neutrophils 65.5 % (42.0-75.0); Hemoglobin 15.6 g/dL (14.0-18.0); Mean Corpuscular HGB CONC 34.4 g/dL (32.0-36.0); Mean Corpuscular Hemoglobin 31.3 pg (27.0-31.0); Mean Corpuscular Volume 90.8 fL (78.0-98.0); Mean Platelet Volume 7.8 fL (7.4-10.4); Platelet Count 224 thou/uL (130-400); RBC Distribution Width 11.9 % (11.5-14.5); Red Blood Cell (RBC) Count 4.98 mill/uL (4.70-6.10); White Blood Cell (WBC) Count 7.1 thou/uL (4.8-10.8)
[2022-07-08] MEDS ORDERED: Aspirin 325 MG TAB ONE (13:49)
[2022-07-08] MEDS ORDERED: Enoxaparin Sodium 100 MG/ML SYRINGE ONE (13:49)
[2022-07-08 14:05] LABS: ALT (SGPT) 33 U/L (8-55); AST (SGOT) 40 U/L (5-34); Albumin 4.1 g/dL (3.4-4.8); Alkaline Phosphatase 80 U/L (40-110); Anion Gap 15 mmol/L (10-20); BUN (Urea Nitrogen) 18 mg/dL (8.4-25.7); Bilirubin, Total 1.5 mg/dL (0.2-1.2); Calc. Creatinine Clearance 0 mL/min (70-130); Calcium 9.2 mg/dL (7.8-10.44); Carbon Dioxide 20 mmol/L (23-31); Chloride 106 mmol/L (98-107); Estimated GFR 67; Globulin 2.8 g/dL (2.4-3.5); Glucose 216 mg/dL (83-110); Potassium 4.3 mmol/L (3.5-5.1); Protein, Total 6.9 g/dL (5.8-8.1); Sodium 137 mmol/L (136-145)
[2022-07-08] MEDS ORDERED: Ondansetron PF 4 MG/2 ML Vial IVP PRN (14:47)
[2022-07-08] MEDS ORDERED: Dextrose 5% in Water 1,000 ML IV PRN (15:17)
[2022-07-08] MEDS ORDERED: Dextrose 50% Abboject 50 ML SYRINGE SLOW IVP PRN (15:17)
[2022-07-08 17:20] LABS: Troponin I Less than 0.010 ng/mL (< 0.028)
[2022-07-08 20:31] LABS: Troponin I Less than 0.010 ng/mL (< 0.028)
[2022-07-08] MEDS: Rosuvastatin 20 MG TAB PO SCH (21:11)
[2022-07-08] MEDS: Metoprolol Tartrate 25 MG TAB PO SCH (21:11)
[2022-07-08] MEDS: Heparin 5,000 UNITS/ML VIAL SC SCH (21:16)
[2022-07-08] MEDS: Tamsulosin HCl 0.4 MG CAP PO SCH (21:16)
[2022-07-09] MEDS: HumaLOG 300 UNITS/3 ML VIAL SC PRN ×4 (06:13→20:38)
[2022-07-09 06:43] LABS: #Eosinphils 0.2 thou/uL (0.0-0.7); #Lymphocytes 2.2 thou/uL (1.20-3.40); #Monocytes 0.6 thou/uL (0.11-0.59); #Neutrophils 4.2 thou/uL (1.40-6.50); %Basophils 0.6 % (0.0-1.0); %Lymphocytes 29.7 % (21.0-51.0); %Monocytes 8.7 % (0.0-10.0); Hemoglobin 16.3 g/dL (14.0-18.0); Mean Corpuscular HGB CONC 33.9 g/dL (32.0-36.0); Mean Corpuscular Volume 91.4 fL (78.0-98.0); Mean Platelet Volume 8.2 fL (7.4-10.4); Platelet Count 235 thou/uL (130-400); RBC Distribution Width 12.1 % (11.5-14.5); Red Blood Cell (RBC) Count 5.27 mill/uL (4.70-6.10); White Blood Cell (WBC) Count 7.3 thou/uL (4.8-10.8)
[2022-07-09 06:49] LABS: Hemoglobin A1c 9.4 % (4.0-6.0)
[2022-07-09 07:05] LABS: ALT (SGPT) 33 U/L (8-55); AST (SGOT) 35 U/L (5-34); Albumin 4.1 g/dL (3.4-4.8); Alkaline Phosphatase 86 U/L (40-110); Anion Gap 15 mmol/L (10-20); BUN (Urea Nitrogen) 13 mg/dL (8.4-25.7); Bilirubin, Total 2.1 mg/dL (0.2-1.2); Calc. Creatinine Clearance 0 mL/min (70-130); Calcium 9.1 mg/dL (7.8-10.44); Carbon Dioxide 21 mmol/L (23-31); Cardiac Risk 4.7 (Less than 4.5); Chloride 105 mmol/L (98-107); Cholesterol 165 mg/dl (< 200 Desired); Estimated GFR 79; Globulin 2.8 g/dL (2.4-3.5); Glucose 176 mg/dL (83-110); HDL Cholesterol 35 mg/dL (>60 Neg Risk); LDL Cholesterol, Calculated 85 mg/dL; Potassium 4.1 mmol/L (3.5-5.1); Protein, Total 6.9 g/dL (5.8-8.1); Sodium 137 mmol/L (136-145); Triglycerides 226 mg/dL (Less than 150)
[2022-07-09] MEDS ORDERED: FLU VACC QS2022-23(65YR UP)/PF 240 MCG/0.7 ML SYRINGE IM ONE (09:00)
[2022-07-09] MEDS: Aspirin 81 mg Enteric Coated Tablet PO SCH (09:02)
[2022-07-09] MEDS: Heparin 5,000 UNITS/ML VIAL SC SCH (09:03)
[2022-07-09] MEDS: Metoprolol Tartrate 25 MG TAB PO SCH ×2 (09:03→20:37)
[2022-07-09] MEDS: Apixaban 5 MG TAB PO SCH (20:34)
[2022-07-09] MEDS: Rosuvastatin 20 MG TAB PO SCH (20:37)
[2022-07-09] MEDS: Tamsulosin HCl 0.4 MG CAP PO SCH (20:38)
[2022-07-09] MEDS: Acetaminophen 325 MG TAB PO PRN (22:04)
[2022-07-10] MEDS: HumaLOG 300 UNITS/3 ML VIAL SC PRN ×3 (06:07→17:28)
[2022-07-10] MEDS: Apixaban 5 MG TAB PO SCH ×2 (08:32→21:02)
[2022-07-10] MEDS: Aspirin 81 mg Enteric Coated Tablet PO SCH (08:32)
[2022-07-10] MEDS: Metoprolol Tartrate 25 MG TAB PO SCH ×2 (08:32→21:02)
[2022-07-10] MEDS: Acetaminophen 325 MG TAB PO PRN (11:25)
[2022-07-10] MEDS: Tamsulosin HCl 0.4 MG CAP PO SCH (21:02)
[2022-07-10] MEDS: Rosuvastatin 20 MG TAB PO SCH (21:02)
[2022-07-11] MEDS: HumaLOG 300 UNITS/3 ML VIAL SC PRN ×4 (06:55→22:30)
[2022-07-11] MEDS: Apixaban 5 MG TAB PO SCH (08:25)
[2022-07-11] MEDS: Metoprolol Tartrate 25 MG TAB PO SCH ×2 (08:28→22:30)
[2022-07-11] MEDS: Aspirin 81 mg Enteric Coated Tablet PO SCH (08:28)
[2022-07-11 11:36] VITALS: BMI 32.1
[2022-07-11] MEDS ORDERED: Insulin Glargine 30 UNITS/0.3 ML VIAL SC SCH (13:45)
[2022-07-11] MEDS: Rosuvastatin 20 MG TAB PO SCH (22:30)
[2022-07-11] MEDS: Tamsulosin HCl 0.4 MG CAP PO SCH (22:30)
[2022-07-12 05:20] LABS: #Basophils 0.1 thou/uL (0.0-0.2); #Eosinphils 0.3 thou/uL (0.0-0.7); #Lymphocytes 2.4 thou/uL (1.20-3.40); #Monocytes 0.8 thou/uL (0.11-0.59); #Neutrophils 3.7 thou/uL (1.40-6.50); %Basophils 0.7 % (0.0-1.0); %Lymphocytes 33.2 % (21.0-51.0); %Monocytes 10.7 % (0.0-10.0); %Neutrophils 51.4 % (42.0-75.0); Hemoglobin 16.3 g/dL (14.0-18.0); Mean Corpuscular HGB CONC 33.8 g/dL (32.0-36.0); Mean Corpuscular Hemoglobin 30.8 pg (27.0-31.0); Platelet Count 248 thou/uL (130-400); RBC Distribution Width 11.8 % (11.5-14.5); Red Blood Cell (RBC) Count 5.29 mill/uL (4.70-6.10); White Blood Cell (WBC) Count 7.2 thou/uL (4.8-10.8)
[2022-07-12 05:40] LABS: Anion Gap 12 mmol/L (10-20); BUN (Urea Nitrogen) 22 mg/dL (8.4-25.7); Calc. Creatinine Clearance 59 mL/min (70-130); Calcium 8.9 mg/dL (7.8-10.44); Carbon Dioxide 22 mmol/L (23-31); Chloride 108 mmol/L (98-107); Estimated GFR 56; Glucose 290 mg/dL (83-110); Potassium 3.9 mmol/L (3.5-5.1); Sodium 138 mmol/L (136-145)
[2022-07-12] MEDS: HumaLOG 300 UNITS/3 ML VIAL SC PRN ×3 (05:42→16:07)
[2022-07-12] MEDS ORDERED: Insulin Glargine 30 UNITS/0.3 ML VIAL SC SCH (09:00)
[2022-07-12] MEDS: Aspirin 81 mg Enteric Coated Tablet PO SCH (09:20)
[2022-07-12] MEDS: Metoprolol Tartrate 25 MG TAB PO SCH (09:22)
[2022-07-12 16:06] VITALS: BP 130/85; TEMP 97.9
[2022-07-15] MEDS ORDERED: Apixaban 5 MG TAB PO SCH (09:00)
== END 2022-07-12 16:34 | disposition home health service (06) | DRG 65 ==
LOC: ERS 12:36 → NEURO 14:47
PROVIDERS: ADMIT Internal Medicine; ATTEND Internal Medicine
DX: I63.9 Cerebral infarction, unspecified (principal); G81.94 Hemiplegia, unspecified affecting left nondominant side; I10 Essential (primary) hypertension; I48.91 Unspecified atrial fibrillation; E78.5 Hyperlipidemia, unspecified; E66.9 Obesity, unspecified; N40.0 Benign prostatic hyperplasia without lower urinary tract symptoms; E11.69 Type 2 diabetes mellitus with other specified complication; H53.47 Heteronymous bilateral field defects; Z20.822 Contact with and (suspected) exposure to COVID-19; Z86.73 Personal history of transient ischemic attack (TIA), and cerebral infarction without residual deficits; Z90.49 Acquired absence of other specified parts of digestive tract; Z79.01 Long term (current) use of anticoagulants; Z88.8 Allergy status to other drugs, medicaments and biological substances; Z79.84 Long term (current) use of oral hypoglycemic drugs; Z68.32 Body mass index [BMI] 32.0-32.9, adult
CPT/HCPCS: 36415; 36416; 70450; 70496; 70498; 70551; 71045; 80048; 80053; 80061; 83036; 84443; 84484; 85025; 85379; 93005; 93306; 96372; J1644; J1650; J1815; Q9967; U0003; U0005

== ENCOUNTER 2022-08-15 22:22 | Inpatient (IN) | payer MEDICARE, OTHER ==
[2022-08-15] MEDS ORDERED: Diltiazem 125 MG/25 ML ONE (22:53)
[2022-08-15] MEDS ORDERED: Cefepime 2 GM VIAL ONE (22:53)
[2022-08-15 22:54] LABS: #Lymphocytes 1.4 thou/uL (1.20-3.40); #Monocytes 0.9 thou/uL (0.11-0.59); #Neutrophils 7.8 thou/uL (1.40-6.50); %Basophils 0.1 % (0.0-1.0); %Eosinophils 0.2 % (0.0-10.0); %Lymphocytes 14.1 % (21.0-51.0); %Monocytes 8.6 % (0.0-10.0); Hemoglobin 16.3 g/dL (14.0-18.0); Mean Corpuscular HGB CONC 35.7 g/dL (32.0-36.0); Mean Corpuscular Hemoglobin 32.9 pg (27.0-31.0); Mean Corpuscular Volume 92.1 fl (78.0-98.0); Mean Platelet Volume 8.4 fL (7.4-10.4); Platelet Count 215 10x3/uL (130-400); RBC Distribution Width 11.7 % (11.5-14.5); Red Blood Cell (RBC) Count 4.97 mill/uL (4.70-6.10); White Blood Cell (WBC) Count 10.1 10x3/uL (4.8-10.8)
[2022-08-15 23:07] LABS: Acetaminophen Less than 10.0 mcg/mL (10.0-30.0); Alcohol Less than 10 mg/dL (Less than 10); Salicylate Less than 8.0 mg/dL (15.0-30.0)
[2022-08-15 23:08] LABS: INR-International Normal Ratio 1.3; PTT 40.1 sec (22.9-36.1)
[2022-08-15 23:09] LABS: ALT (SGPT) 32 U/L (8-55); AST (SGOT) 30 U/L (5-34); Albumin 4.1 g/dL (3.4-4.8); Alkaline Phosphatase 104 U/L (40-110); Anion Gap 17 mmol/L (10-20); BUN (Urea Nitrogen) 22 mg/dL (8.4-25.7); Bilirubin, Total 2.6 mg/dL (0.2-1.2); CK (CPK) 185 U/L (30-200); Calc. Creatinine Clearance 0 mL/min (70-130); Calcium 8.8 mg/dL (7.8-10.44); Carbon Dioxide 18 mmol/L (23-31); Chloride 102 mmol/L (98-107); Estimated GFR 57; Globulin 3.1 g/dL (2.4-3.5); Glucose 352 mg/dL (83-110); Lipase 38 U/L (8-78); Potassium 4.3 mmol/L (3.5-5.1); Protein, Total 7.2 g/dL (5.8-8.1); Sodium 133 mmol/L (136-145)
[2022-08-15 23:13] LABS: Amphetamine Not Detected (NotDetected); Barbiturates Screen Not Detected (NotDetected); Benzodiazepine Screen Not Detected (NotDetected); Cocaine Metabolite Screen Not Detected (NotDetected); Methadone Not Detected (NotDetected); Methamphetamine Not Detected (NotDetected); Opiate Screen Not Detected (NotDetected); Oxycodone Screen Not Detected (NotDetected); Phencyclidine (PCP) Not Detected (NotDetected); THC/Cannabinoid Screen Not Detected (NotDetected); Tricyclic Screen Not Detected (NotDetected)
[2022-08-15] MEDS ORDERED: VANCOMYCIN 1.75 GM/500 ML BAG 1.75 GM in Premix Bag 1 BAG IVPB SCH (23:15)
[2022-08-15 23:16] LABS: Bacteria/HPF None Seen HPF (None Seen); Bilirubin Negative (Negative); Blood, Urine Negative (Negative); Clarity Clear (Clear); Glucose, Urine (Dipstick) Greater than 1000 mg/dL (Negative); Ketone, Urine 10 mg/dL (Negative); Leukocyte Negative Leu/uL (Negative); Nitrite Negative (Negative); Protein, Urine (Dipstick) 100 mg/dL (Neg-Trace); RBC/HPF 0-3 HPF (0-3); Specific Gravity, Urine 1.032 (1.002-1.036); Squamous Epithelial 0-3 HPF (0-3); Urobilinogen Normal mg/dL (Less than 2); WBC/HPF 0-3 HPF (0-3); pH, Urine 5.5 (5.0-9.0)
[2022-08-16] MEDS ORDERED: Diltiazem HCl 125 MG, Admixture Fee 1 EACH in Sodium Chloride 0.9% 100 ML IVPB SCH (00:15)
[2022-08-16 00:37] VITALS: BMI 27.9
[2022-08-16 02:12] LABS: SARS-CoV-2 NAA Rapid Test DETECTED (NotDetected)
[2022-08-16] MEDS ORDERED: Ondansetron PF 4 MG/2 ML Vial IVP PRN (05:58)
[2022-08-16] MEDS ORDERED: Acetaminophen 325 MG TAB PO PRN (05:58)
[2022-08-16 06:28] LABS: Troponin I 0.011 ng/mL (< 0.028)
[2022-08-16 07:13] LABS: #Eosinphils 0.1 thou/uL (0.0-0.7); #Lymphocytes 1.4 thou/uL (1.20-3.40); #Monocytes 0.8 thou/uL (0.11-0.59); #Neutrophils 5.9 thou/uL (1.40-6.50); %Basophils 0.1 % (0.0-1.0); %Eosinophils 0.7 % (0.0-10.0); %Lymphocytes 17.1 % (21.0-51.0); %Monocytes 9.6 % (0.0-10.0); %Neutrophils 72.6 % (42.0-75.0); Hemoglobin 14.6 g/dL (14.0-18.0); Mean Corpuscular HGB CONC 33.9 g/dL (32.0-36.0); Mean Corpuscular Hemoglobin 31.1 pg (27.0-31.0); Platelet Count 199 10x3/uL (130-400); RBC Distribution Width 11.6 % (11.5-14.5); Red Blood Cell (RBC) Count 4.68 mill/uL (4.70-6.10); White Blood Cell (WBC) Count 8.1 10x3/uL (4.8-10.8)
[2022-08-16] MEDS ORDERED: Dextrose 5% in Water 1,000 ML IV PRN (07:26)
[2022-08-16] MEDS ORDERED: Dextrose 50% Abboject 50 ML SYRINGE SLOW IVP PRN (07:26)
[2022-08-16 07:36] LABS: Anion Gap 15 mmol/L (10-20); BUN (Urea Nitrogen) 20 mg/dL (8.4-25.7); Calc. Creatinine Clearance 74 mL/min (70-130); Calcium 8.5 mg/dL (7.8-10.44); Carbon Dioxide 20 mmol/L (23-31); Chloride 104 mmol/L (98-107); Estimated GFR 76; Glucose 261 mg/dL (83-110); Magnesium 1.7 mg/dL (1.6-2.6); Potassium 3.8 mmol/L (3.5-5.1); Sodium 135 mmol/L (136-145)
[2022-08-16] MEDS ORDERED: Metoprolol Tartrate 50 MG TAB ONE (08:18)
[2022-08-16] MEDS ORDERED: Aspirin Chewable 81 MG TAB ONE (08:18)
[2022-08-16] MEDS ORDERED: Metoprolol Tartrate 25 MG TAB ONE (08:18)
[2022-08-16] MEDS ORDERED: Zinc Sulfate 220 MG CAP ONE (08:21)
[2022-08-16] MEDS ORDERED: Ascorbic Acid 500 mg Chewable Tablet ONE ×2 (08:21→08:22)
[2022-08-16] MEDS: Metoprolol Tartrate 50 MG TAB PO SCH ×2 (08:38→21:19)
[2022-08-16] MEDS: Zinc Sulfate 220 MG CAP PO SCH (08:39)
[2022-08-16] MEDS: Ascorbic Acid 500 mg Chewable Tablet PO SCH (08:39)
[2022-08-16] MEDS ORDERED: Aspirin Chewable 81 MG TAB PO SCH (09:00)
[2022-08-16] MEDS ORDERED: Acetaminophen 325 MG TAB ONE (09:43)
[2022-08-16] MEDS: Apixaban 5 MG TAB PO SCH ×2 (10:51→21:19)
[2022-08-16] MEDS ORDERED: Albuterol 200 PUFF (6.7GM INHALER) INH PRN (11:32)
[2022-08-16] MEDS: guaiFENesin/DM ER PO SCH ×2 (12:07→21:19)
[2022-08-16] MEDS ORDERED: Dexamethasone 4 MG TAB PO SCH (12:15)
[2022-08-16] MEDS ORDERED: Dexamethasone 4 MG TAB ONE (13:51)
[2022-08-16] MEDS: HumaLOG 300 UNITS/3 ML VIAL SC PRN ×2 (16:47→21:20)
[2022-08-16] MEDS: Simvastatin 10 MG TAB PO SCH (21:20)
[2022-08-16] MEDS: Insulin Glargine 30 UNITS/0.3 ML VIAL SC SCH (21:20)
[2022-08-17 05:38] LABS: #Lymphocytes 0.9 thou/uL (1.20-3.40); #Monocytes 0.3 thou/uL (0.11-0.59); #Neutrophils 5.7 thou/uL (1.40-6.50); %Basophils 0.3 % (0.0-1.0); %Lymphocytes 12.3 % (21.0-51.0); %Monocytes 4.8 % (0.0-10.0); %Neutrophils 82.5 % (42.0-75.0); Hemoglobin 15.3 g/dL (14.0-18.0); Mean Corpuscular Hemoglobin 31.4 pg (27.0-31.0); Mean Corpuscular Volume 92.3 fl (78.0-98.0); Mean Platelet Volume 8.3 fL (7.4-10.4); Platelet Count 207 10x3/uL (130-400); RBC Distribution Width 11.5 % (11.5-14.5); Red Blood Cell (RBC) Count 4.87 mill/uL (4.70-6.10); White Blood Cell (WBC) Count 6.9 10x3/uL (4.8-10.8)
[2022-08-17] MEDS: HumaLOG 300 UNITS/3 ML VIAL SC PRN ×4 (05:50→21:43)
[2022-08-17 06:02] LABS: Anion Gap 15 mmol/L (10-20); BUN (Urea Nitrogen) 20 mg/dL (8.4-25.7); CRP (Inflammatory) 10.79 mg/dL (= or < 0.5); Calc. Creatinine Clearance 74 mL/min (70-130); Calcium 8.9 mg/dL (7.8-10.44); Carbon Dioxide 21 mmol/L (23-31); Chloride 105 mmol/L (98-107); Estimated GFR 76; Magnesium 2.1 mg/dL (1.6-2.6); Potassium 4.6 mmol/L (3.5-5.1); Sodium 136 mmol/L (136-145)
[2022-08-17 06:05] LABS: Glucose 403 mg/dL (83-110)
[2022-08-17 08:27] LABS: Hemoglobin A1c 11.8 % (4.0-6.0)
[2022-08-17] MEDS ORDERED: Aspirin Chewable 81 MG TAB PO SCH (09:00)
[2022-08-17] MEDS: Metoprolol Tartrate 50 MG TAB PO SCH ×2 (09:32→21:42)
[2022-08-17] MEDS: Ascorbic Acid 500 mg Chewable Tablet PO SCH (09:34)
[2022-08-17] MEDS: Dexamethasone 4 MG TAB PO SCH (09:35)
[2022-08-17] MEDS: Insulin Glargine 30 UNITS/0.3 ML VIAL SC SCH ×2 (09:36→21:44)
[2022-08-17] MEDS: Apixaban 5 MG TAB PO SCH ×2 (09:36→21:42)
[2022-08-17] MEDS: Zinc Sulfate 220 MG CAP PO SCH (09:36)
[2022-08-17] MEDS: guaiFENesin/DM ER PO SCH ×2 (09:36→21:43)
[2022-08-17] MEDS ORDERED: Insulin Glargine 30 UNITS/0.3 ML VIAL SC SCH (14:15)
[2022-08-17] MEDS: Doxycycline 100 MG CAP PO SCH (21:42)
[2022-08-17] MEDS: Simvastatin 10 MG TAB PO SCH (21:42)
[2022-08-17] MEDS: Benzonatate 100 MG CAP PO PRN (21:43)
[2022-08-18 05:33] LABS: #Lymphocytes 1.5 thou/uL (1.20-3.40); #Monocytes 0.8 thou/uL (0.11-0.59); #Neutrophils 7.8 thou/uL (1.40-6.50); %Eosinophils 0.1 % (0.0-10.0); %Lymphocytes 15.2 % (21.0-51.0); %Monocytes 7.6 % (0.0-10.0); %Neutrophils 77.1 % (42.0-75.0); Hemoglobin 15.1 g/dL (14.0-18.0); Mean Corpuscular HGB CONC 33.2 g/dL (32.0-36.0); Mean Corpuscular Hemoglobin 30.5 pg (27.0-31.0); Mean Platelet Volume 8.4 fL (7.4-10.4); Platelet Count 247 10x3/uL (130-400); RBC Distribution Width 11.5 % (11.5-14.5); Red Blood Cell (RBC) Count 4.95 mill/uL (4.70-6.10); White Blood Cell (WBC) Count 10.1 10x3/uL (4.8-10.8)
[2022-08-18 05:49] LABS: Anion Gap 17 mmol/L (10-20); BUN (Urea Nitrogen) 34 mg/dL (8.4-25.7); Calc. Creatinine Clearance 61 mL/min (70-130); Calcium 9.2 mg/dL (7.8-10.44); Carbon Dioxide 16 mmol/L (23-31); Chloride 107 mmol/L (98-107); Estimated GFR 60; Glucose 284 mg/dL (83-110); Potassium 4.5 mmol/L (3.5-5.1); Sodium 135 mmol/L (136-145)
[2022-08-18] MEDS: HumaLOG 300 UNITS/3 ML VIAL SC PRN ×3 (06:35→17:43)
[2022-08-18] MEDS: Insulin Glargine 30 UNITS/0.3 ML VIAL SC SCH ×2 (08:48→21:20)
[2022-08-18] MEDS: Zinc Sulfate 220 MG CAP PO SCH (08:49)
[2022-08-18] MEDS: Metoprolol Tartrate 50 MG TAB PO SCH ×2 (08:49→21:21)
[2022-08-18] MEDS: Doxycycline 100 MG CAP PO SCH ×2 (08:49→21:18)
[2022-08-18] MEDS: Apixaban 5 MG TAB PO SCH ×2 (08:50→21:17)
[2022-08-18] MEDS: Dexamethasone 4 MG TAB PO SCH (08:50)
[2022-08-18] MEDS: Ascorbic Acid 500 mg Chewable Tablet PO SCH (08:50)
[2022-08-18] MEDS: guaiFENesin/DM ER PO SCH ×2 (08:51→21:19)
[2022-08-18] MEDS ORDERED: NS 0.9% w/ 20 MEQ KCL 1,000 ML/1,000 ML BAG IV SCH (09:30)
[2022-08-18] MEDS ORDERED: Mometasone/Formoterol 200/5 60 PUFF INH SCH (09:30)
[2022-08-18 15:25] LABS: Anion Gap 14 mmol/L (10-20); BUN (Urea Nitrogen) 33 mg/dL (8.4-25.7); Calc. Creatinine Clearance 63 mL/min (70-130); Calcium 9.3 mg/dL (7.8-10.44); Carbon Dioxide 21 mmol/L (23-31); Chloride 107 mmol/L (98-107); Estimated GFR 62; Glucose 340 mg/dL (83-110); Potassium 4.5 mmol/L (3.5-5.1); Sodium 137 mmol/L (136-145)
[2022-08-18] MEDS ORDERED: Insulin Glargine 30 UNITS/0.3 ML VIAL SC SCH ×2 (16:00)
[2022-08-18] MEDS: Mometasone 200 MCG/Formoterol 5 MCG 120 PUFF INHALER INH SCH (17:43)
[2022-08-18] MEDS ORDERED: Mometasone 200 MCG/Formoterol 5 MCG 120 PUFF INHALER INH SCH (18:30)
[2022-08-18] MEDS ORDERED: Tamsulosin HCl 0.4 MG CAP PO SCH (21:00)
[2022-08-18] MEDS: Simvastatin 10 MG TAB PO SCH (21:22)
[2022-08-18] MEDS: Benzonatate 100 MG CAP PO PRN (21:23)
[2022-08-19 05:28] LABS: #Lymphocytes 1.6 thou/uL (1.20-3.40); #Monocytes 0.5 thou/uL (0.11-0.59); #Neutrophils 5.8 thou/uL (1.40-6.50); %Eosinophils 0.1 % (0.0-10.0); %Lymphocytes 20.5 % (21.0-51.0); %Monocytes 6.5 % (0.0-10.0); Hemoglobin 14.1 g/dL (14.0-18.0); Mean Corpuscular HGB CONC 33.6 g/dL (32.0-36.0); Mean Corpuscular Hemoglobin 30.8 pg (27.0-31.0); Mean Corpuscular Volume 91.9 fl (78.0-98.0); Platelet Count 227 10x3/uL (130-400); RBC Distribution Width 11.4 % (11.5-14.5); Red Blood Cell (RBC) Count 4.57 mill/uL (4.70-6.10)
[2022-08-19 06:00] LABS: Anion Gap 13 mmol/L (10-20); BUN (Urea Nitrogen) 31 mg/dL (8.4-25.7); Calc. Creatinine Clearance 76 mL/min (70-130); Carbon Dioxide 24 mmol/L (23-31); Chloride 106 mmol/L (98-107); Estimated GFR 78; Glucose 232 mg/dL (83-110); Potassium 3.9 mmol/L (3.5-5.1); Sodium 139 mmol/L (136-145)
[2022-08-19] MEDS: HumaLOG 300 UNITS/3 ML VIAL SC PRN (06:23)
[2022-08-19] MEDS: Mometasone 200 MCG/Formoterol 5 MCG 120 PUFF INHALER INH SCH (06:24)
[2022-08-19] MEDS: guaiFENesin/DM ER PO SCH (09:30)
[2022-08-19] MEDS: Insulin Glargine 30 UNITS/0.3 ML VIAL SC SCH (09:31)
[2022-08-19] MEDS: Zinc Sulfate 220 MG CAP PO SCH (09:31)
[2022-08-19] MEDS: Metoprolol Tartrate 50 MG TAB PO SCH (09:31)
[2022-08-19] MEDS: Ascorbic Acid 500 mg Chewable Tablet PO SCH (09:31)
[2022-08-19] MEDS: Doxycycline 100 MG CAP PO SCH (09:31)
[2022-08-19] MEDS: Apixaban 5 MG TAB PO SCH (09:32)
[2022-08-19 11:54] VITALS: BP 134/96; TEMP 97.3
[2022-08-19] MEDS ORDERED: FLU VACC QS2022-23(65YR UP)/PF 240 MCG/0.7 ML SYRINGE IM ONE (15:45)
== END 2022-08-19 14:00 | disposition home or self-care (01) | DRG 871 ==
LOC: ERS 22:22 → ERHOLD 23:57 → NEURO 08-16 15:25
PROVIDERS: ADMIT Internal Medicine; ATTEND Internal Medicine
PROC: 8E0ZXY6 Isolation (ICD-10-PCS; principal; 2022-08-15)
PROC: 3E03329 Introduction of Other Anti-infective into Peripheral Vein, Percutaneous Approach (ICD-10-PCS; 2022-08-15)
DX: A41.89 Other specified sepsis (principal); J12.82 Pneumonia due to coronavirus disease 2019; J96.01 Acute respiratory failure with hypoxia; U07.1 COVID-19; I10 Essential (primary) hypertension; I48.91 Unspecified atrial fibrillation; E11.65 Type 2 diabetes mellitus with hyperglycemia; E78.5 Hyperlipidemia, unspecified; N40.0 Benign prostatic hyperplasia without lower urinary tract symptoms; Z90.49 Acquired absence of other specified parts of digestive tract; Z79.84 Long term (current) use of oral hypoglycemic drugs; Z79.899 Other long term (current) drug therapy
CPT/HCPCS: 36415; 36416; 71045; 80048; 80053; 80306; 80307; 81003; 81015; 82728; 83036; 83605; 83690; 83735; 83880; 84145; 84443; 84484; 85025; 85610; 85730; 86140; 87040; 87086; 93005; 96365; 96366; 96367; 96368; 96376; J0692; J1815; J3370; J3480; J8540